=== PATIENT | female | born 1950 | race Caucasian/White ===

== ENCOUNTER → 2018-04-22 12:05 | Outpatient (CLI) | payer MEDICARE, BC, SELFPAY ==
[2018-04-22 13:38] LABS: AST(SGOT) 19 U/L (15-37); Alanine Aminotransfer ALT/SGPT 34 U/L (13-56); Alkaline Phosphatase 78 U/L (45-117); Anion Gap 10 (5-15); BUN 15 mg/dL (7-18); BUN/Creat Ratio 20.3 RATIO (10-20); Calcium,Total 9.4 mg/dL (8.5-10.1); Chloride 102 mmol/L (98-107); Creatinine, Serum 0.74 mg/dL (0.55-1.02); EST Glomerular Filtration Rate 84 mL/min (>60); Est Glom Filt Rate - Afr Amer 101 mL/min (>60); Globulin 4.1 g/dL (2.2-4.2); Glucose 176 mg/dL (74-106); Potassium 4.1 mmol/L (3.5-5.1); Protein, Total 8.1 g/dL (6.4-8.2); Sodium Level 141 mmol/L (136-145)
[2018-04-22 13:39] LABS: Microalbumin,Random Urine 7.1 mg/L (NO RANGE EST.); Microalbumin:Creatinine Ratio 12.6 mg/g CRE (<30 mg/g CRE)
[2018-04-22 13:42] LABS: Hemoglobin A1c 7.4 % (4.2-6.3)
== END ==
PROVIDERS: Referring Provider Nurse Practitioner; Visit Provider Nurse Practitioner
DX: E11.65 Type 2 diabetes mellitus with hyperglycemia (principal)
CPT/HCPCS: 36415; 80053; 82043; 82570; 83036

== ENCOUNTER → 2018-07-23 11:16 | Outpatient (CLI) | payer MEDICARE, BC, SELFPAY ==
[2018-07-23 10:30] VITALS: BMI 30.7
[2018-07-23 13:34] LABS: Vitamin D,25 Hydroxy 45.1 ng/mL (29.95-100.01)
== END ==
PROVIDERS: Referring Provider Nurse Practitioner; Visit Provider Nurse Practitioner
DX: E55.9 Vitamin D deficiency, unspecified (principal)
CPT/HCPCS: 36415; 82306

== ENCOUNTER → 2018-08-01 09:41 | Outpatient (CLI) | payer MEDICARE, BC, SELFPAY ==
[2018-07-23 10:30] VITALS: BMI 30.7
[2018-08-01 11:55] LABS: Free T3 2.6 pg/mL (2.18-3.98); T4 Free Direct 1.05 ng/dL (0.76-1.46); Thyroid Stim Hormone (TSH) 1.71 uIU/mL (0.358-3.74)
== END ==
PROVIDERS: Referring Provider Nurse Practitioner; Visit Provider Nurse Practitioner
DX: E07.9 Disorder of thyroid, unspecified (principal); E11.9 Type 2 diabetes mellitus without complications
CPT/HCPCS: 36415; 84439; 84443; 84481

== ENCOUNTER → 2025-03-19 | Outpatient (CLI) | payer MEDICARE, BC, SELFPAY ==
--- NOTE | 2025-03-19 06:26 | ECHOD_ITS ---
Reason For Study Reason For Study: CAD, Abn EKG Procedure This was a 2D Doppler, Color Flow transthoracic echocardiogram. Exam performed in department. Left Ventricle Normal LV size. The left ventricular ejection fraction is 65 %. Stage 1 diastolic dysfunction. No regional wall motion abnormalities noted. Right Ventricle Normal RV size. Normal systolic function. Atria Normal left atrium. Normal right atrium. Mitral Valve Normal mitral valve. Tricuspid Valve Normal tricuspid valve. Aortic Valve Trisinus/trileaflet aortic valve. Mild focal aortic valve calcification. Pulmonic Valve Normal pulmonic valve. Great Vessels Normal aortic root. The pulmonary artery is normal size. Normal inferior vena cava. Pericardium/Pleural No pericardial effusion. MMode/2D Measurements & Calculations LVIDd: 4.1 cm IVSd: 0.76 cm Ao root diam: 2.9 cm LVIDs: 2.5 cm LVPWd: 0.84 cm RVDd: 2.7 cm FS: 38.0 % LAV(MOD-bp): 35.6 ml LVAd ap4: 20.5 cm2 LVAd ap2: 23.9 cm2 LAV(MOD-bp) Indexed: 20.2 ml/m2 LVLd ap4: 6.4 cm LVLd ap2: 7.2 cm LAV(MOD-sp2): 34.8 ml EDV(MOD-sp4): 54.6 ml EDV(MOD-sp2): 66.7 ml LAV(MOD-sp4): 33.7 ml EDV(sp4-el): 55.6 ml EDV(sp2-el): 67.1 ml LVAs ap4: 11.0 cm2 LVAs ap2: 13.4 cm2 LVLs ap4: 5.9 cm LVLs ap2: 6.4 cm ESV(MOD-sp4): 18.1 ml ESV(MOD-sp2): 23.2 ml ESV(sp4-el): 17.6 ml ESV(sp2-el): 23.8 ml EF(MOD-sp4): 66.8 % EF(MOD-sp2): 65.2 % EF(sp4-el): 68.4 % SV(MOD-sp4): 36.5 ml SV(MOD-sp2): 43.5 ml SV(sp4-el): 38.0 ml SI(MOD-sp4): 20.7 ml/m2 SI(MOD-sp2): 24.6 ml/m2 LA A4 area: 13.4 cm2 RA A4 area: 10.0 cm2 TAPSE: 1.6 cm Time Measurements MV dec time: 0.21 sec Doppler Measurements & Calculations MV E max kunal: 74.6 cm/sec Lat Peak E' Kunal: 6.7 cm/sec Med Peak E' Kunal: 6.5 cm/sec MV A max kunal: 88.6 cm/sec E/E' lat: 11.1 E/E' med: 11.5 MV E/A: 0.84 Ao V2 max: 144.3 cm/sec AI max kunal: 439.8 cm/sec MV dec slope: 352.7 cm/sec2 Ao max P.3 mmHg AI max P.4 mmHg AI dec slope: 283.7 cm/sec2 AI P1/2t: 454.2 msec LV V1 max: 102.5 cm/sec PA V2 max: 91.4 cm/sec TR max kunal: 251.7 cm/sec LV V1 max P.2 mmHg TR max P.4 mmHg ECHO/Echo Complete Interpretation Summary Normal LV size. The left ventricular ejection fraction is 65 %. Stage 1 diastolic dysfunction. The global longitudinal strain is normal. The global longitudinal strain = -18. 8 % (normal). Ordering Physician: Abel Waldrop Referring Physician: Abel Waldrop Performed By: Emma Valdes RDCS
--- OUTSIDE RECORDS SUMMARY | 2025-03-19 06:30 | XMS RPT_ITS | CCD ---
Author Organization [facility] Care Team Providers Care Asset Recovery Specialist Name Role Phone ZACH DO, DR BRADLY Coley Primary Care Physician ZACH DO, DR BRADLY Coley Primary Care Unavailabl e ZACH DO, DR BRADLY Coley Attending Unavailabl e ZACH DO, DR BRADLY Coley Primary Care Unavailabl e ZACH DO, DR BRADLY Coley Attending Unavailabl e ZACH DO, DR BRADLY Coley Primary Care Unavailabl e ZACH DO, DR BRADLY Coley Attending Unavailabl e ZACH DO, DR BRADLY Coley Primary Care Unavailabl e ZACH DO, DR BRADLY Coley Attending Unavailabl e ZACH DO, DR BRADLY Coley Attending Unavailabl e ZACH DO, DR BRADLY Coley Primary Care Unavailabl e ZACH DO, DR BRADLY Coley Attending Unavailabl e ZACH DO, DR BRADLY Coley Primary Care Unavailabl e ZACH DO, DR BRADLY Coley Attending Unavailabl e ZACH DO, DR BRADLY Coley Primary Care Unavailabl e ZACH DO, DR BRADLY Coley Attending Unavailabl e ZACH DO, DR BRADLY Coley Primary Care Unavailabl e ZACH DO, DR BRADLY Coley Primary Care Unavailabl e ZACH DO, DR BRADLY Coley Attending Unavailabl e ZACH DO, DR BRADLY Coley Attending Unavailabl e ZACH DO, DR BRADLY Coley Primary Care Unavailabl e ZACH DO, DR BRADLY Coley Attending Unavailabl e ZACH DO, DR BRADLY Coley Primary Care Unavailabl e ZACH DO, DR BRADLY Coley Primary Care Unavailabl e ZACH DO, DR BRADLY Coley Attending Unavailabl e ZACH DO, DR BRADLY Coley Primary Care Unavailabl e ZACH DO, DR BRADLY Coley Attending Unavailabl e [facility] DO, DR BRADLY Coley Attending Unavailabl e ZACH DO, DR BRADLY Coley Primary Care Unavailabl e ZACH DO, DR BRADLY Coley Primary Care Unavailabl e JOSEPH MURGUIA Attending Unavailable Dr. Abel Waldrop MD Attending Provider [phone] Zach CARPENTER, Dr. Hernández Primary Care Provider [phone] Zach CARPENTER, Dr. Hernández Referring Provider Abel Waldrop Attending Unavailable Bradly Serrano Referring Unavailable Bradly Serrano Primary Care Unavailable Bradly Serrano Primary Care Unavailable Abel Waldrop Referring Unavailable Abel Waldrop Attending Unavailable Medications Current Medications Medication Drug Class(es) Dates Sig (Normalized) Sig (Original) ACCU-CHEK TALYA PLUS TEST STRP (13 sources) Start: 02-17-2019 ACCU-CHEK TALYA PLUS TEST STRP See Instructions, Check BG 2 times daily #50 Refill 12 Diabetes type 2, # 50 EA Start Date: 02/17/19 Status: Ordered Quantity: 50.0 Unit: EA Repeat number: 1 Start: 02-17-2019 ACCU-CHEK JUSTIN A PLUS TEST STRP See Instructions, Check BG 2 times daily #50 Refill 12 Diabetes type 2, # 50 EA Start Date: 02/17/19 Status: Ordered aspirin 81 mg delayed release oral tablet (2 sources) Platelet Aggregation Inhibitor, Nonsteroidal Anti-inflammatory Drug Start: 02-15-2025 take 1 tablet by mouth once daily Aspirin (Adult Aspirin Regimen) 81 mg tablet,delayed release (DR/EC) Active 81 mg PO daily February 15, 2025 12:00am Start: 02-01-2025 aspirin 81 mg oral delayed release tablet Dose : 81 mg = 1 tab(s), Oral, qDay, # 30 tab(s), 0 Refill(s), Pharmacy: [facility]/pharmacy #[id number], 168, cm, 02/01/25 13:08:00 EDT, Height, kg, 02/01/25 13:08:00 EDT, Dosing Weight Start Date: 02/01/25 Status: Ordered Quantity: 30.0 Unit: tab(s) Repeat number: 1 biotin 1 mg oral capsule (1 source) Start: 10-28-2017 take 1 capsule by mouth once daily Biotin 1 mg capsule Active 1 mg PO daily October 28, 2017 12:00am Biotin Forte (13 sources) Start: 02-17-2019 take 1 tablet by iris th once daily Biotin Forte Dose = 1 tab(s), Oral, qDay, 0 Refill(s) Start Date: 02/17/19 Status: Ordered Repeat number: 1 Start: 02-17-2019 take 1 tablet by iris th once daily Biotin Forte Dose = 1 tab(s), Oral, qDay, 0 Refill(s) Start Date: 02/17/19 Status: Ordered Blood-Glucose Meter (Accu-Ch ek Talya Plus Meter) misc (2 sources) Start: 06-17-2018 Blood-Glucose Meter (Accu-Chek Talya Plus Meter) misc Active 0 .ROUTE .MEDSUPPLY 1 0 June 17, 2018 1:48pm Type 2 diabetes mellitus without complications use to moniter Bg as directed Start: 06-17-2018 End: 06-17-2018 Blood-Glucose Meter (Accu-Ch ek Talya Plus Meter) misc Discontinued 0 .ROUTE .MEDSUPPLY 1 0 June 17, 2018 1:00am June 17, 2018 1:48pm Type 2 diabetes mellitus without complications use to moniter Bg as directed calcium (as citrate)-vitamin D 250 mg-200 intl units oral tablet (1 source) Start: 02-17-2019 take 1 tablet by mouth twice daily calcium (as citrate)-vitamin D 250 mg-200 intl units oral tablet Dose = 1 tab(s), Oral, BID, # 150 tab(s), 0 Refill(s) Start Date: 02/17/19 Status: Ordered Calcium Carb, Citrate-Vit D3 (Citracal-D3 Slow Release) 600 mg calcium- 500 unit tablet extended release (3 sources) Start: 04-30-2018 Calcium Carb, Citrate-Vit D3 (Citracal-D3 Slow Release) 600 mg calcium- 500 unit tablet extended release Active 1 {tbl} PO daily 90 April 30, 2018 5:11pm Start: 04-30-2018 End: 04-30-2018 Calcium Carb, Citrate-Vit D3 (Citracal-D3 Slow Release) 600 mg calcium- 500 unit tablet extended release Discontinued 1 {tbl} PO daily 90 April 30, 2018 9:47am April 30, 2018 5:13pm Start: 10-28-2017 End: 04-30-2018 Calcium Carb, Citrate-Vit D3 (Citracal-D3 Slow Release) 600 mg calcium- 500 unit tablet extended release Discontinued {tbl} PO 0 October 28, 2017 12:00am April 30, 2018 9:51am calcium citrate 1190 mg / cholecalciferol 0.005 mg oral tablet (12 sources) Vitamin D Start: 02-17-2019 take 1 tablet by mouth twice daily calcium (as citrate)-vitamin D 250 mg-200 intl units oral tablet Dose = 1 tab(s), Oral, BID, # 150 tab(s), 0 Refill(s) Start Date: 02/17/19 Status: Ordered Quantity: 150.0 Unit: tab(s) Repeat number: 1 Centrum (13 sources) Start: 02-17-2019 take 1 tablet by mouth once daily Centrum 1 tab, Oral, qDay, 0 Refill(s) Start Date: 02/17/19 Status: Ordered Repeat number: 1 Start: 02-17-2019 take 1 tablet by iris th once daily Centrum 1 tab, Oral, qDay, 0 Refill(s) Start Date: 02/17/19 Status: Ordered dapagliflozin 10 mg oral tablet (13 sources) Sodium-Glucose Cotransporter 2 Inhibitor Start: 02-15-2025 take 1 tablet by mouth once daily Dapagliflozin Propanediol (Farxiga) 10 mg tablet Active 10 mg PO daily February 15, 2025 12:00am Start: 12-26-2021 Farxiga 10 mg oral tablet Dose : 10 mg = 1 tab(s), Oral, qDay, # 30 tab(s), 11 Refill(s), Pharmacy: [facility]/pharmacy #[id number], 168.5, cm, 12/01/21 9:12:00 EDT, Height Start Date: 12/26/21 Status: Ordered Quantity: 30.0 Unit: tab(s) Repeat number: 12 empagliflozin 25 mg / linagliptin 5 mg oral tablet (4 sources) Dipeptidyl Peptidase 4 Inhibitor, Sodium-Glucose Cotransporter 2 Inhibitor Start: 10-28-2017 End: 02-15-2025 take 1 tablet by mouth once daily in the morning, then take 1 tablet by mouth in the morning Glyxambi 25 mg-5 mg oral tablet Dose = 1 tab(s), Oral, qAM, TAKE 1 TABLET IN THE MORNING, # 90 tab(s), 3 Refill(s), Pharmacy: [facility]/pharmacy #[id number], 166.2, cm, 03/01/21 13:15:00 EDT, Height, kg, 03/01/21 13:15:00 EDT, Dosing Weight Start Date: 05/22/21 Status: Ordered glimepiride 4 mg oral tablet (12 sources) Sulfonylurea Start: 05-07-2024 glimepiride 4 mg oral tablet Dose : 4 mg = 1 tab(s), Oral, BID, TAKE 1 TABLET BY MOUTH TWICE A DAY, # 180 tab(s), 3 Refill(s), Pharmacy: [facility]/pharmacy #[id number], 168, cm, 03/20/24 8:20:00 EDT, Height, kg, 04/20/24 14:31:00 EDT, Dosing Weight Start Date: 05/07/24 Status: Ordered Start: 03-18-2023 glimepiride 4 mg oral tablet Dose : 4 mg = 1 tab(s), Oral, BID, TAKE 1 TABLET BY MOUTH TWICE A DAY, # 180 tab(s), 3 Refill(s), Pharmacy: [facility]/pharmacy #[id number], 168, cm, 03/18/23 9:33:00 EDT, Height, kg, 03/18/23 9:33:00 EDT, Dosing Weight Start Date: 03/18/23 Status: Ordered Start: 10-28-2017 End: 02-15-2025 glimepiride 4 mg oral tablet Dose : 4 mg = 1 tab(s), Oral, BID, TAKE 1 TABLET BY MOUTH TWICE A DAY, # 180 tab(s), 3 Refill(s), Pharmacy: [facility]/pharmacy #[id number], 165.5, cm, 03/15/22 9:33:00 EDT, Height, kg, 03/15/22 9:33:00 EDT, Dosing Weight Start Date: 06/05/22 Status: Ordered glipiZIDE 10 mg oral tablet (5 sources) Sulfonylurea Start: 02-15-2025 take 1 tablet by mouth once daily Glipizide 10 mg tablet Active 10 mg PO daily February 15, 2025 12:00am Start: 08-06-2024 glipiZIDE 10 m g oral tablet, extended release Dose : 10 mg = 1 tab(s), Oral, qDay, Take with food Replaces glimepiride, # 90 tab(s), 3 Refill(s), [id number] 168, cm, 03/20/24 8:20:00 EDT, Height, kg, 06/25/24 15:35:00 EST, Dosing Weight Start Date: 08/06/24 Status: Ordered Quantity: 90.0 Unit: tab(s) Repeat number: 4 Start: 06-25-2024 glipiZIDE 10 m g oral tablet, extended release Dose : 10 mg = 1 tab(s), Oral, qDay, Take with food Replaces glimepiride, # 90 tab(s), 0 Refill(s), [id number], 168, cm, 03/20/24 8:20:00 EDT, Height, kg, 06/25/24 15:35:00 EST, Dosing Weight Start Date: 06/25/24 Status: Ordered hydroCHLOROthiazide 25 mg oral tablet (14 sources) Thiazide Diuretic Start: 02-15-2025 take 1 tablet by mouth once daily Hydrochlorothiazide 25 mg tablet Active 25 mg PO daily February 15, 2025 12:00am Start: 05-07-2024 hydroCHLOROthi azide 25 mg oral tablet Dose : 25 mg = 1 tab(s), Oral, qDay, # 100 tab(s), 3 Refill(s), [id number], Benign hypertension, 168, cm, 03/20/24 8:20:00 EDT, Height, kg, 04/20/24 14:31:00 EDT, Dosing Weight Start Date: 05/07/24 Status: Ordered Quantity: 100.0 Unit: tab(s) Repeat number: 4 Indications: Essential (primary) hypertension; Start: 03-18-2023 hydroCHLOROthi azide 25 mg oral tablet Dose : 25 mg = 1 tab(s), Oral, qDay, # 90 tab(s), 3 Refill(s), [id number], Benign hypertension, 168, cm, 03/18/23 9:33:00 EDT, Height, kg, 03/18/23 9:33:00 EDT, Dosing Weight Start Date: 03/18/23 Status: Ordered Start: 05-16-2022 hydroCHLOROthi azide 25 mg oral tablet Dose : 25 mg = 1 tab(s), Oral, qDay, # 90 tab(s), 3 Refill(s), [id number], Benign hypertension, 165.5, cm, 03/15/22 9:33:00 EDT, Height, kg, 03/15/22 9:33:00 EDT, Dosing Weight Start Date: 05/16/22 Status: Ordered Start: 09-14-2021 hydroCHLOROthi azide 25 mg oral tablet Dose : 25 mg = 1 tab(s), Oral, qDay, # 90 tab(s), 2 Refill(s), Pharmacy: [facility]/pharmacy #[id number], Benign hypertension, 168, cm, 09/14/21 10:51:00 EST, Height, kg, 09/14/21 10:51:00 EST, Dosing Weight Start Date: 09/14/21 Status: Ordered Start: 08-24-2020 hydroCHLOROthi azide 25 mg oral tablet Dose : 25 mg = 1 tab(s), Oral, qDay, start after finished with combination medication, # 90 tab(s), 3 Refill(s), [id number], Benign hypertension, 171.2, cm, 08/24/20 8:48:00 EST, Height, kg, 08/24/20 8:48:00 EST, Dosing Weight Start Date: 08/24/20 Status: Ordered losartan potassium 50 mg oral tablet (14 sources) Angiotensin 2 Receptor Marilee Start: 02-15-2025 take 1 tablet by mouth once daily Losartan 50 mg tablet Active 50 mg PO daily February 15, 2025 12:00am Start: 05-07-2024 losartan 50 mg oral tablet Dose : 50 mg = 1 tab(s), Oral, qDay, # 100 tab(s), 3 Refill(s), [id number], 168, cm, 03/20/24 8:20:00 EDT, Height, kg, 04/20/24 14:31:00 EDT, Dosing Weight Start Date: 05/07/24 Status: Ordered Quantity: 100.0 Unit: tab(s) Repeat number: 4 Start: 03-18-2023 losartan 50 mg oral tablet Dose : 50 mg = 1 tab(s), Oral, qDay, replaces valsartan due to cost, # 90 tab(s), 3 Refill(s), Pharmacy: [facility]/pharmacy #[id number], 168, cm, 03/18/23 9:33:00 EDT, Height, kg, 03/18/23 9:33:00 EDT, Dosing Weight Start Date: 03/18/23 Status: Ordered Start: 05-16-2022 losartan 50 mg oral tablet Dose : 50 mg = 1 tab(s), Oral, qDay, replaces valsartan due to cost, # 90 tab(s), 3 Refill(s), Pharmacy: [facility]/pharmacy #[id number], 165.5, cm, 03/15/22 9:33:00 EDT, Height, kg, 03/15/22 9:33:00 EDT, Dosing Weight Start Date: 05/16/22 Status: Ordered Start: 05-15-2021 losartan 50 mg oral tablet Dose : 50 mg = 1 tab(s), Oral, qDay, replaces valsartan due to cost, # 90 tab(s), 3 Refill(s), [id number], 166.2, cm, 03/01/21 13:15:00 EDT, Height, kg, 03/01/21 13:15:00 EDT, Dosing Weight Start Date: 05/15/21 Status: Ordered metFORMIN hydrochloride 1000 mg oral tablet (17 sources) Biguanide Start: 02-15-2025 Metformin 1,00 0 mg tablet Active 500 mg PO TWICE A DAY February 15, 2025 9:04am Start: 09-28-2024 MetFORMIN (Eqv -Glucophage XR) 500 mg oral tablet, EXTENDED RELEASE Dose : 500 mg = 1 tab(s), Oral, BID, DISPENSE GENERIC METFORMIN ER NON-OSMOTIC, # 180 tab(s), 1 Refill(s), [id number], 168, cm, 03/20/24 8:20:00 EDT, Height, kg, 09/28/24 12:16:00 EDT, Dosing Weight Start Date: 09/28/24 Status: Ordered Quantity: 180.0 Unit: tab(s) Repeat number: 2 Start: 04-20-2024 MetFORMIN (Eqv -Glucophage XR) 500 mg oral tablet, EXTENDED RELEASE Dose : 500 mg = 1 tab(s), Oral, qDay, DISPENSE GENERIC METFORMIN ER NON-OSMOTIC, # 90 tab(s), 1 Refill(s), Pharmacy: [facility]/pharmacy #[id number], 168, cm, 03/20/24 8:20:00 EDT, Height, kg, 04/20/24 14:31:00 EDT, Dosing Weight Start Date: 04/20/24 Status: Ordered Quantity: 90.0 Unit: tab(s) Repeat number: 2 Start: 03-18-2023 metFORMIN 1000 mg oral tablet (IR) Dose : 1,000 mg = 1 tab(s), Oral, BID, TAKE 1 TABLET BY MOUTH TWICE A DAY, # 180 tab(s), 3 Refill(s), Pharmacy: [facility]/pharmacy #[id number], 168, cm, 03/18/23 9:33:00 EDT, Height, kg, 03/18/23 9:33:00 EDT, Dosing Weight Start Date: 03/18/23 Status: Ordered Start: 06-05-2022 metFORMIN 1000 mg oral tablet (IR) Dose : 1,000 mg = 1 tab(s), Oral, BID, TAKE 1 TABLET BY MOUTH TWICE A DAY, # 180 tab(s), 3 Refill(s), Pharmacy: [facility]/pharmacy #[id number], 165.5, cm, 03/15/22 9:33:00 EDT, Height, kg, 03/15/22 9:33:00 EDT, Dosing Weight Start Date: 06/05/22 Status: Ordered Start: 10-28-2017 End: 02-15-2025 metFORMIN 1000 mg oral table t (IR) Dose : 1,000 mg = 1 tab(s), Oral, BID, TAKE 1 TABLET BY MOUTH TWICE A DAY, # 180 tab(s), 3 Refill(s), Pharmacy: [facility]/pharmacy #[id number], 166.2, cm, 03/01/21 13:15:00 EDT, Height, kg, 03/01/21 13:15:00 EDT, Dosing Weight Start Date: 05/15/21 Status: Ordered Zompradvohzc-Lnih-Esiei Acid (Centrum Complete) 18-400 mg-mcg tablet (1 source) Start: 10-28-2017 Ueveatzaiikz-Aluv-Ggqxr Acid (Centrum Complete) 18-400 mg-mcg tablet Active 1 {tbl} PO daily October 28, 2017 12:00am nitroglycerin 0.3 mg sublingual tablet (2 sources) Nitrate Vasodilator Start: 02-15-2025 Nitroglycerin 0.3 mg tablet, sublingual Active 0.3 mg SL every 5 to 15 minutes as needed February 15, 2025 12:00am do not exceed 3 doses per episode Start: 02-01-2025 nitroglycerin 0.3 mg sublingual tablet Dose : 0.3 mg = 1 tab(s), Sublingual, q5min, PRN as needed for chest pain, not to exceed 3 doses/15 min--if pain persists, seek medical attention, # 100 tab(s), 0 Refill(s), Pharmacy: [facility]/pharmacy #[id number], 168, cm, 02/01/25 13:08:00 EDT, Height, kg, 02/01/25 13:08:00 EDT, Dosing Weight Start Date: 02/01/25 Status: Ordered Quantity: 100.0 Unit: tab(s) Repeat number: 1 pioglitazone 45 mg oral tablet (16 sources) Peroxisome Proliferator Receptor alpha Agonist, Peroxisome Proliferator Receptor gamma Agonist, Thiazolidinedione Start: 05-07-2024 pioglitazone 45 mg oral tablet Dose : 45 mg = 1 tab(s), Oral, qDay, # 100 tab(s), 3 Refill(s), Pharmacy: [facility]/pharmacy #[id number], 168, cm, 03/20/24 8:20:00 EDT, Height, kg, 04/20/24 14:31:00 EDT, Dosing Weight Start Date: 05/07/24 Status: Ordered Quantity: 100.0 Unit: tab(s) Repeat number: 4 Start: 03-18-2023 pioglitazone 4 5 mg oral tablet Dose : 45 mg = 1 tab(s), Oral, qDay, TAKE 1 TABLET BY MOUTH EVERY DAY, # 90 tab(s), 3 Refill(s), Pharmacy: [facility]/pharmacy #[id number], 168, cm, 03/18/23 9:33:00 EDT, Height, kg, 03/18/23 9:33:00 EDT, Dosing Weight Start Date: 03/18/23 Status: Ordered Start: 10-28-2017 End: 04-30-2018 take 1 tablet by mouth once daily Pioglitazone (Actos) 45 mg tablet Discontinued 45 mg PO daily 90 April 30, 2018 9:50am April 30, 2018 5:13pm semaglutide 14 mg oral tablet (12 sources) Start: 03-06-2022 Rybelsus 14 mg oral tablet Dose : 14 mg = 1 tab(s), Oral, qDay, take at least 30 minutes before first food, beverage, or other oral meds, # 30 tab(s), 11 Refill(s), Pharmacy: [facility]/pharmacy #[id number], 168.5, cm, 12/01/21 9:12:00 EDT, Height Start Date: 03/06/22 Status: Ordered Quantity: 30.0 Unit: tab(s) Repeat number: 12 Semaglutide (Rybelsus) 14 mg tablet (1 source) Start: 02-15-2025 take 1 tablet by mouth once daily Semaglutide (Rybelsus) 14 mg tablet Active 14 mg PO daily February 15, 2025 12:00am simvastatin 40 mg oral tablet (16 sources) HMG-CoA Reductase Inhibitor Start: 05-07-2024 simvastatin 40 mg oral tablet Dose : 40 mg = 1 tab(s), Oral, qHS, e11.9, # 100 tab(s), 3 Refill(s), Pharmacy: [facility]/pharmacy #[id number], 168, cm, 03/20/24 8:20:00 EDT, Height, kg, 04/20/24 14:31:00 EDT, Dosing Weight Start Date: 05/07/24 Status: Ordered Quantity: 100.0 Unit: tab(s) Repeat number: 4 Start: 03-18-2023 simvastatin 40 mg oral tablet Dose : 40 mg = 1 tab(s), Oral, qHS, e11.9, # 90 tab(s), 3 Refill(s), Pharmacy: [facility]/pharmacy #[id number], 168, cm, 03/18/23 9:33:00 EDT, Height, kg, 03/18/23 9:33:00 EDT, Dosing Weight Start Date: 03/18/23 Status: Ordered Start: 10-28-2017 End: 04-22-2018 take 1 tablet by mouth once daily in the evening Simvastatin 40 mg tablet Discontinued 40 mg PO EVERY EVENING 30 April 22, 2018 10:41am April 22, 2018 11:47am Completed/Discontinued Medications Medication Drug Class(es) Dates Sig (Normalized) Sig (Original) Blood-Glucose Meter misc (1 source) Start: 04-22-2018 End: 08-06-2018 Blood-Glucose Meter misc Discontinued 0 .ROUTE .MEDSUPPLY 1 0 April 22, 2018 12:00am August 06, 2018 2:30pm Type 2 diabetes mellitus without complications As directed cholecalciferol 1.25 mg oral capsule (3 sources) Vitamin D Start: 10-28-2017 End: 02-19-2025 take 1 capsule by mouth every other week Cholecalciferol (Vitamin D3) 50,000 unit capsule Discontinued 18292 U PO .q2wks 10 May 27, 2018 11:08am February 19, 2025 1:16pm Disorder of bone density and structure, unspecified Start: 10-28-2017 End: 02-19-2025 Cholecalciferol (Vitamin D3) 2,000 unit capsule Discontinued 3500 U PO daily October 28, 2017 12:00am February 19, 2025 1:16pm colesevelam hydrochloride 3750 mg powder for oral suspension (1 source) Bile Acid Sequestrant Start: 10-28-2017 End: 02-15-2025 take 3750 mg by mouth once daily Colesevelam (Welchol) 3.75 gram powder in packet Discontinued 3750 mg PO daily October 28, 2017 12:00am February 15, 2025 9:05am hydroCHLOROthiazide 25 mg / losartan potassium 100 mg oral tablet (3 sources) Thiazide Diuretic, Angiotensin 2 Receptor Marilee Start: 10-28-2017 End: 02-15-2025 Losartan-Hydrochl orothiazide 100-25 mg tablet Discontinued 1 {tbl} PO daily 90 3 April 30, 2018 5:11pm February 15, 2025 9:03am Problems Problem Classification Problem Date Documented Da te Episodic/Chronic Administrative/social admission (3 sources) Dietary counseling and surveillance; Translations: [Dietary counseling and surveillance] Onset: 12-17-2023 Episodic Diabetes mellitus with complications (3 sources) Renal disorder due to type 2 diabetes mellitus; Translations: [Type 2 diabetes mellitus with other diabetic kidney complication] Onset: 03-22-2023 Chronic Diabetes mellitus without complication (20 sources) Diabetes mellitus; Translations: [Type 2 diabetes mellitus without complications] Onset: 03-11-2024 09-23-2019 Chronic Comment on above: Review of patient re cords indicates she was on onvokana but was switched to another medication in the same class. However she has not achieved the same level of control which is probably why she was asked to start insulin. Dx :2008Last exacerb ation : DKA : never Hypoglycemic episode : never ER visit : never Disorders of lipid metabolism (17 sources) Mixed hyperlipidemia; Translations: [Mixed hyperlipidemia] Onset: 02-19-2025 02-12-2019 Chronic Comment on above: On stain. Was also p rescribed whelchol by the endocrinoligst but is not taking. She continues on simvastatin. Essential hypertension (16 sources) Benign hypertension; Translations: [Essential hypertension] Onset: 02-19-2025 02-12-2019 Chronic Comment on above: On ARB Bp in range. today. 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 Pt is to continue Calcium and vitamin D supplements. Other ear and sense organ disorders (8 sources) Impacted cerumen 05-23-2023 Episodic Results Test Name Value Interpretation Reference Range Facility Cardiology Visit Reporton Cardiology Visit Report [facility] [address] [place], [place] [address] OFFICE VISIT Date of Service: 02/19/25 MR#: [id number] Acct: [id number] Name: OZZY ALCOCER Rep #: [id number] : 1950 Provider: Dr. Abel Waldrop MD Age/Sex: 74/F Location[place] [facility] [place] Status: Signed HPI HPI History of Present Illness Details: 74-year-old lady who presents for cardiac evaluation. She had presented to the hospital in [place] in early January with chest discomfort. She said it was on the left side it started approximately a month prior to this. She does not know of any precipitating, exacerbating or relieving factors. She does have a strong family history of heart disease and has a history of hypertension as well as a diabetes mellitus. She was evaluated and started on aspirin and then referred to see cardiology. She says that she has not had any more of the chest discomfort since. She has been compliant with her medications especially her diabetic medications. She has had no dizziness or diaphoresis no near-syncope or syncope. Her physical exam demonstrates clear lung york regular rate and rhythm soft 1/6 systolic murmur noted at the apex and the left sternal border. Her electrocardiogram demonstrates sinus rhythm with a rate of 77 bpm poor R wave progression suggestive of a previous anteroseptal infarct. Her lipid profile demonstrates a total cholesterol 153 HDL of 46 LDL of 65. Intake Vital Signs 02/19/25 13:01 Height 5 ft 6 in Weight: 149 lb BMI 24.0 BP 145/76 H Blood Pressure Location Lt brachial Position Sitting Respiration 16 Pulse 75 Pulse Source Monitor Intake Visit Reasons: STEVE CORONA) Manager Department Required: No Accompanied by: Significant Other Is patient in pain?: No Allergies No Known Allergies Allergy (Unverified 02/19/25 13:14) Medications ???Medication ???Instructions ???Recorded ???Confirmed ???Type biotin 1 mg capsule 1 mg PO QDAY 10/28/17 02/19/25 His tory multivitamin-ferrous 1 tab PO QDAY 10/28/17 02/19/25 Hi story fumarate-folic acid 18 mg-400 mcg tablet (Centrum Complete) simvastatin 40 mg tablet 40 mg PO QPM #30 tabs 04/22/1808/15 Rx calcium ER 600 mg (as carb,cit)-D3 1 tab PO QDAY #90 tabs 04/30/18 02/19/25 Rx 12.5 mcg (500 unit) tablet, ext.rel (Citracal-D3 Slow Release) pioglitazone 45 mg tablet (Actos) 45 mg PO QDAY #90 tabs 04/30/18 0 02/19/25 Rx blood-glucose meter (Accu-Chek #1 ea 06/17/18 10/08/18 Rx Talya Plus Meter) blood sugar diagnostic (Accu-Chek #60 ea 08/06/18 10/08/18 Rx Talya Plus test strips) aspirin 81 mg tablet,delayed 81 mg PO QDAY 02/15/25 02/19/25 Hi story release (Adult Aspirin Regimen) dapagliflozin propanediol 10 mg 10 mg PO QDAY 02/15/25 02/19/25 Hi story tablet (Farxiga) glipizide 10 mg tablet 10 mg PO QDAY 02/15/25 02/19/25 Hi story hydrochlorothiazide 25 mg tablet 25 mg PO QDAY 02/15/25 02/19/25 Hi story losartan 50 mg tablet 50 mg PO QDAY 02/15/25 02/19/25 Hi story metformin 1,000 mg tablet 500 mg PO BID 02/15/25 02/19/25 Hi story nitroglycerin 0.3 mg sublingual 0.3 mg sublingual Q5-15M PRN 02/1502/19/25 History tablet semaglutide 14 mg tablet (Rybelsus) 14 mg PO QDAY 02/15/25 02/19/25 History Have you fallen in the past year?: Yes PFSH Medical History Cardiac murmur Chest pain Hyperlipidemia, unspecified Vision problems High cholesterol HTN (hypertension) Low calcium levels Gallstones Diabetes type 2, controlled Arthritis Surgical History H/O dilation and curettage Hx of cholecystectomy H/O: hysterectomy Family History Unknown Arthritis Diabetes Heart disease Hypertension High cholesterol Kidney disease Skin cancer Other Parkinsons disease Social History Smoking Status: Never smoker second hand exposure: No alcohol intake: never substance use type: does not use ROS Const Const: Negative for fatigue, weakness, headache(s), daytime sleepiness or difficulty sleeping ENT ENT: Negative for headache(s), dizziness or Nosebleed/epistaxis Cardio Chest Pain: No Palpitations: No Edema: None Resp Respiratory: Negative for SOB with activity, SOB at rest, SOB orthopnea SOB lying down or Cough GI GI: Negative nausea, vomiting or heartburn Neuro Neuro: Negative for dizziness, lightheadedness, near syncope, headache(s) or weakness Endo Endo: Negative for fatigue Cardiology Exam Const Appearance: cooperative, healthy appearing, no acute distress, well developed and well groomed Nutritional Appearance: average body (more content not included)... Normal [facility] .Auto Diffon 02-01-2025 Basophil, Absolute 0.0 10 3/mcL Normal 0.0-0.3 [facility] Comment on above: Performed By: #### G FR, ANEU, CMP, CBC, PBNP, ROIXE GALDAMEZ, TROPHS #### [address] [address] Basophils/100 WBC (Bld) 0.5 % Normal 0.0-2.5 [facility] Comment on above: Performed By: #### G FR, ANEU, CMP, CBC, PBNP, ROXIE GALDAMEZ, DAVIDA #### [address] [address] Eosinophil, Absolute 0.1 10 3/mcL Normal 0.0-0.7 [facility] Comment on above: Performed By: #### G FR, ANEU, CMP, CBC, PBNP, ROXIE GALDAMEZ, DAVIDA #### [address] [address] Eosinophils/100 WBC (Bld) 1.2 % Normal 0.0-6.0 [facility] Comment on above: Performed By: #### G FR, ANEU, CMP, CBC, PBNP, ADROXIE VALLEJO, TROPHS #### [address] [address] Lymphocyte, Absolute 1.7 10 3/mcL Normal 0.9-4.3 [facility] Comment on above: Performed By: #### G FR, ANEU, CMP, CBC, PBNP, RUDOLPH, ROXIE, TROPHS #### [address] [address] Lymphocytes/100 WBC (Bld) 17.0 % Low 20.0-40.0 [facility] Comment on above: Performed By: #### G FR, ANEU, CMP, CBC, PBNP, RUDOLPH, ROXIE, TROPHS #### [address] [address] Monocyte, Absolute 0.8 10 3/mcL Normal 0.1-1.4 [facility] Comment on above: Performed By: #### G FR, ANEU, CMP, CBC, PBNP, RUDOLPH, ROXIE, TROPHS #### [address] [address] Monocytes/100 WBC (Bld) 7.8 % Normal 2.0-13.0 [facility] Comment on above: Performed By: #### G FR, ANEU, CMP, CBC, PBNP, ROXIE GALDAMEZ, TROPHS #### [address] [address] Neutrophils/100 WBC (Bld) 73.5 % Normal 50.0-75.0 [facility] Comment on above: Performed By: #### G FR, ANEU, CMP, CBC, PBNP, RUDOLPH, ROXIE, TROPHS #### [address] [address] .GFRon 02-01-2025 Estimated Glomerular Filtration Rate 97 ml/min/1.73sqm Normal [facility] Comment on above: Result Comment: Stages of Chronic Kidney Disease (CKD) Stage Description eGFR(ml/min/1.73 sq.m.) CKD 1 Normal kidney function or >=90 normal kindney function with possible kidney damage (ex. Proteinuria) CKD 2 Kidney damage with mild loss 60-89 of kidney function CKD 3a Mild to moderate loss of kidney 45-59 function CKD 3b Moderate to severe loss of 30-44 of kindey function CKD 4 Severe loss of kidney function 15-29 CKD 5 Kidney failure <15 Note: (go live 2024) the eGFR calculation was updated to the 2020 CKD-EPI creatinine equation without a race factor to calculate the eGFR results. Performed By: #### G FR, ANEU, CMP, CBC, PBNP, ADIFF, MDW, TROPHS #### [place] [id number] .MDWon 02-01-2025 Monocyte Distribution Width 18.87 Normal 0.00-20.00 [facility] Comment on above: Result Comment: For ED adult patients suspected of sepsis, MDW<=20.0 does not rule out sepsis or risk of sepsis Performed By: #### G FR, ANEU, CMP, CBC, PBNP, ADIFF, MDW, TROPHS #### [place] [address] .NEUABSon 02-01-2025 Neutrophil, Absolute 7.5 10 3/mcL Normal 2.3-8.1 [facility] Comment on above: Performed By: #### G FR, ANEU, CMP, CBC, PBNP, ADIFF, MDW, TROPHS #### [place] [address] CBCon 02-01-2025 Erythrocyte distribution width (RBC) [Ratio] 14.1 % Normal 11.5-15.5 [facility] Comment on above: Performed By: #### G FR, ANEU, CMP, CBC, PBNP, ADIFF, MDW, TROPHS #### [place] [address] Hematocrit (Bld) [Volume fraction] 44.2 % Normal 34.0-46.0 [facility] Comment on above: Performed By: #### G FR, ANEU, CMP, CBC, PBNP, ADIFF, MDW, TROPHS #### [place] [address] Hgb 15.1 G/dL Normal 12.0-16.0 [facility] Comment on above: Performed By: #### G FR, ANEU, CMP, CBC, PBNP, ADIFF, MDW, TROPHS #### [place] [address] MCH (RBC) [Entitic mass] 31.1 pg Normal 27.0-33.0 [facility] Comment on above: Performed By: #### G FR, ANEU, CMP, CBC, PBNP, ADIFF, MDW, TROPHS #### [place] [address] MCHC 34.1 G/dL Normal 32.0-36.0 [facility] Comment on above: Performed By: #### G FR, ANEU, CMP, CBC, PBNP, ADIFF, MDW, TROPHS #### [place] [address] MCV (RBC) [Entitic vol] 91.2 fL Normal 80.0-99.0 [facility] Comment on above: Performed By: #### G FR, ANEU, CMP, CBC, PBNP, ADIFF, MDW, TROPHS #### [place] [address] Platelet 239 10 3/mcL Normal 150-450 [facility] Comment on above: Performed By: #### G FR, ANEU, CMP, CBC, PBNP, ADIFF, MDW, TROPHS #### [place] [address] Platelet mean volume (Bld) [Entitic vol] 9.7 fL Normal 6.6-10.5 [facility] Comment on above: Performed By: #### G FR, ANEU, CMP, CBC, PBNP, ADIFF, MDW, TROPHS #### [place] [address] RBC 4.85 10 6/mcL Normal 4.10-5.30 [facility] Comment on above: Performed By: #### G FR, ANEU, CMP, CBC, PBNP, ADIFF, MDW, TROPHS #### [place] [phone] WBC 10.2 10 3/mcL Normal 4.5-10.8 [facility] Comment on above: Performed By: #### G FR, ANEU, CMP, CBC, PBNP, ADIFF, MDW, TROPHS #### [address] [address] CMPon 02-01-2025 Albumin Level 4.2 G/dL Normal 3.2-4.8 [facility] Comment on above: Performed By: #### G FR, ANEU, CMP, CBC, PBNP, ADIFF, MDW, TROPHS #### [place] [address] Albumin/Globulin [Mass ratio] 1.2 {ratio} Normal 0.9-1.6 [facility] Comment on above: Performed By: #### G FR, ANEU, CMP, CBC, PBNP, ADIFF, MDW, TROPHS #### [address] [address] ALP [Catalytic activity/Vol] 83 U/L Normal 38-126 [facility] Comment on above: Performed By: #### G FR, ANEU, CMP, CBC, PBNP, ADIFF, MDW, TROPHS #### [address] [address] ALT [Catalytic activity/Vol] 11 U/L Normal 10-49 [facility] Comment on above: Performed By: #### G FR, ANEU, CMP, CBC, PBNP, ADIFF, MDW, TROPHS #### [address] [address] AST [Catalytic activity/Vol] 16 U/L Normal 8-34 [facility] Comment on above: Performed By: #### G FR, ANEU, CMP, CBC, PBNP, ADIFF, MDW, TROPHS #### [address] [address] Bili Total 0.50 mg/dL Normal 0.20-1.20 [facility] Comment on above: Result Comment: Use of this assay is not recommended for patients undergoing treatment with eltrombopag due to the potential for falsely elevated results. Performed By: #### G FR, ANEU, CMP, CBC, PBNP, ADIFF, MDW, TROPHS #### [address] [address] BUN/Creatinine Ratio 25.0 ratio High 10.0-22.0 [facility] Comment on above: Performed By: #### G FR, ANEU, CMP, CBC, PBNP, ADGENEVIEVE, ROXIE, TROPHS #### [address] [address] Calcium [Mass/Vol] 9.8 mg/dL Normal 8.7-10.4 [facility] Comment on above: Performed By: #### G FR, ANEU, CMP, CBC, PBNP, RUDOLPH, ROXIE, TROPHS #### [address] [address] Chloride [Moles/Vol] 102 mmol/L Normal 98-110 [facility] Comment on above: Performed By: #### G FR, ANEU, CMP, CBC, PBNP, ADGENEVIEVE, ROXIE, TROPHS #### [address] [address] CO2 [Moles/Vol] 27 mmol/L Normal 22-32 [facility] Comment on above: Performed By: #### G FR, ANEU, CMP, CBC, PBNP, RUDOLPH, ROXIE, TROPHS #### [address] [address] Creatinine [Mass/Vol] 0.56 mg/dL Normal 0.50-1.20 [facility] Comment on above: Result Comment: Test ing performed on Firetide analyzer using enzymatic creatinine methodology. Performed By: #### G FR, ANEU, CMP, CBC, PBNP, ADGENEVIEVE, ROXIE, TROPHS #### [address] [address] Electrolyte Balance 13.0 mEq/L Normal 4.0-15.0 [facility] Comment on above: Performed By: #### G FR, ANEU, CMP, CBC, PBNP, ADGENEVIEVE, ROXIE, TROPHS #### [address] [address] Globulin 3.6 G/dL Normal 2.5-4.2 [facility] Comment on above: Performed By: #### G FR, ANEU, CMP, CBC, PBNP, RUDOLPH, ROXIE, TROPHS #### [address] [address] Glucose [Mass/Vol] 147 mg/dL High 82-115 [facility] Comment on above: Performed By: #### G FR, ANEU, CMP, CBC, PBNP, RUDOLPH, ROXIE, TROPHS #### [address] [address] Potassium [Moles/Vol] 3.7 mmol/L Normal 3.5-5.0 [facility] Comment on above: Performed By: #### G FR, ANEU, CMP, CBC, PBNP, RUDOLPH, ROXIE, TROPHS #### [address] [address] Sodium [Moles/Vol] 142 mmol/L Normal 136-145 [facility] Comment on above: Performed By: #### G FR, ANEU, CMP, CBC, PBNP, RUDOLPH, ROXIE, TROPHKimberlee #### [place] [phone] Total Protein 7.8 G/dL Normal 5.7-8.2 [facility] Comment on above: Performed By: #### G FR, ANEU, CMP, CBC, PBNP, RUDOLPH, ROXIE, TROPHS #### [place] [phone] Urea nitrogen [Mass/Vol] 14.0 mg/dL Normal 8.0-22.0 [facility] Comment on above: Performed By: #### G FR, ANEU, CMP, CBC, PBNP, RUDOLPH, ROXIE, TROPHS #### [address] [address] LABORATORYOrdered By: SYSTEM SYSTEM on 02-01-2025 Troponin I.cardiac DL <= 0.01 ng/mL [Mass/Vol] 3 ng/L Normal 0 - 34 ng/L [facility] Comment on above: Interpretive Data: High Sensitive Troponin I Reference Ranges: Female: 0-34 ng/L Male: 0-54 ng/L Testing performed on dotSyntax analyzer using direct chemiluminescent technology. Albumin BCP dye [Mass/Vol] 4.2 G/dL Normal 3.2 - 4.8 G/dL ADM SS Albumin/Globulin [Mass ratio] 1.2 {ratio} Normal 0.9 - 1.6 ratio AH ADM SS ALP [Catalytic activity/Vol] 83 U/L Normal 38 - 126 U/L ADM SS ALT No additional P-5'-P [Catalytic activity/Vol] 11 U/L Normal 10 - 49 U/L AH ADM SS AST [Catalytic activity/Vol] 16 U/L Normal 8 - 34 U/L ADM SS Basophils (Bld) [#/Vol] 0.0 103/mcL Normal 0.0 - 0.3 10^3/mcL Workflow SS Basophils/100 WBC (Bld) 0.5 % Normal 0.0 - 2.5 % Workflow SS Bilirubin [Mass/Vol] 0.50 mg/dL Normal 0.20 - 1.20 mg/dL ADM SS Comment on above: Interpretive Data: U se of this assay is not recommended for patients undergoing treatment with eltrombopag due to the potential for falsely elevated results. Calcium [Mass/Vol] 9.8 mg/dL Normal 8.7 - 10. 4 mg/dL ADM SS Chloride [Moles/Vol] 102 mmol/L Normal 98 - 11 0 mEq/L ADM SS CO2 [Moles/Vol] 27 mmol/L Normal 22 - 32 mEq/L ADM SS Creatinine [Mass/Vol] 0.56 mg/dL Normal 0.50 - 1.20 mg/dL ADM SS Comment on above: Interpretive Data: T esting performed on Firetide analyzer using enzymatic creatinine methodology. Electrolyte Balance 13.0 mEq/L Normal 4.0 - 15 .0 mEq/L ADM SS Eosinophils (Bld) [#/Vol] 0.1 103/mcL Normal 0.0 - 0.7 10^3/mcL Workflow SS Eosinophils/100 WBC (Bld) 1.2 % Normal 0.0 - 6.0 % Workflow SS Erythrocyte distribution width (RBC) [Ratio] 14.1 % Normal 11.5 - 15.5 % Workflow SS Estimated Glomerular Filtration Rate 97 ml/min/1.73sqm Invalid Interpretation Code ADM SS Comment on above: Interpretive Data: Stages of Chronic Kidney Disease (CKD) Stage Description eGFR(ml/min/1.73 sq.m.) CKD 1 Normal kidney function or >=90 normal kindney function with possible kidney damage (ex. Proteinuria) CKD 2 Kidney damage with mild loss 60-89 of kidney function CKD 3a Mild to moderate loss of kidney 45-59 function CKD 3b Moderate to severe loss of 30-44 of kindey function CKD 4 Severe loss of kidney function 15-29 CKD 5 Kidney failure <15 Note: (go live 2024) the eGFR calculation was updated to the 2020 CKD-EPI creatinine equation without a race factor to calculate the eGFR results. Globulin 3.6 G/dL Normal 2.5 - 4.2 G/dL ADM SS Glucose [Mass/Vol] 147 mg/dL High 82 - 115 mg/dL ADM SS Hematocrit (Bld) [Volume fraction] 44.2 % Normal 34.0 - 46.0 % AH Workflow SS Hemoglobin (Bld) [Mass/Vol] 15.1 G/dL Normal 12.0 - 16.0 G/dL AH Workflow SS Lymphocytes (Bld) [#/Vol] 1.7 103/mcL Normal 0.9 - 4.3 10^3/mcL AH Workflow SS Lymphocytes/100 WBC (Bld) 17.0 % Low 20.0 - 40.0 % AH Workflow SS MCH (RBC) [Entitic mass] 31.1 pg Normal 27.0 - 33.0 pg AH Workflow SS MCHC 34.1 G/dL Normal 32.0 - 36.0 G/dL AH Workflow SS MCV (RBC) [Entitic vol] 91.2 fL Normal 80.0 - 99.0 fL AH Workflow SS Monocyte distribution width Auto (Bld) [Entitic vol] 18.87 1 Normal 0.00 - 20.00 Workflow SS Comment on above: Result Comment: For ED adult patients suspected of sepsis, MDW<=20.0 does not rule out sepsis or risk of sepsis Monocytes (Bld) [#/Vol] 0.8 103/mcL Normal 0.1 - 1.4 10^3/mcL AH Workflow SS Monocytes/100 WBC (Bld) 7.8 % Normal 2.0 - 13.0 % AH Workflow SS Natriuretic peptide.B prohormone N-Terminal IA [Mass/Vol] 116 pg/mL Normal 0 - 900 pg/mL ADM SS Neutrophils (Bld) [#/Vol] 7.5 103/mcL Normal 2.3 - 8.1 10^3/mcL Workflow SS Neutrophils/100 WBC (Bld) 73.5 % Normal 50.0 - 75.0 % Workflow SS Platelet mean volume (Bld) [Entitic vol] 9.7 fL Normal 6.6 - 10.5 fL Workflow SS Platelets (Bld) [#/Vol] 239 103/mcL Normal 150 - 450 10^3/mcL AH Workflow SS Potassium [Moles/Vol] 3.7 mmol/L Normal 3.5 - 5.0 mEq/L ADM SS Protein [Mass/Vol] 7.8 G/dL Normal 5.7 - 8.2 G/dL ADM SS RBC (Bld) [#/Vol] 4.85 106/mcL Normal 4.10 - 5.3 0 10^6/mcL Workflow SS Sodium [Moles/Vol] 142 mmol/L Normal 136 - 145 mEq/L ADM SS Troponin I.cardiac DL <= 0.01 ng/mL [Mass/Vol] 3 ng/L Normal 0 - 34 ng/L ADM SS Comment on above: Interpretive Data: High Sensitive Troponin I Reference Ranges: Female: 0-34 ng/L Male: 0-54 ng/L Testing performed on dotSyntax analyzer using direct chemiluminescent technology. Urea nitrogen [Mass/Vol] 14.0 mg/dL Normal 8.0 - 22.0 mg/dL ADM SS Urea nitrogen/Creatinine [Mass ratio] 25.0 ratio High 10.0 - 22.0 ratio ADM SS WBC (Bld) [#/Vol] 10.2 103/mcL Normal 4.5 - 10.8 10^3/mcL Workflow SS PBNPon 02-01-2025 Natriuretic peptide B (Bld) [Mass/Vol] 116 pg/mL Normal 0-900 [facility] Comment on above: Performed By: #### G FR, ANEU, CMP, CBC, PBNP, ROXIE GALDAMEZ, DAVIDA #### [address] 02-01-2025 High Sensitivity Troponin I 3 ng/L Normal 0-34 [facility] Comment on above: Result Comment: High Sensitive Troponin I Reference Ranges: Female: 0-34 ng/L Male: 0-54 ng/L Testing performed on [employer] IM analyzer using direct chemiluminescent technology. Performed By: #### T [facility] #### [address] [address] High Sensitivity Troponin I 3 ng/L Normal 0-34 [facility] Comment on above: Result Comment: High Sensitive Troponin I Reference Ranges: Female: 0-34 ng/L Male: 0-54 ng/L Testing performed on [employer] IM analyzer using direct chemiluminescent technology. Performed By: #### G FR, ANEU, CMP, CBC, PBNP, ADIFF, MDW, TROPHS #### [address] [address] XR CHEST 1 VIEWon 02-01-2025 XR CHEST 1 VIEW ORIGINAL EXAMINATION: ONE XRAY VIEW OF THE CHEST 02/01/2025 4:52 pm COMPARISON: None. HISTORY: ORDERING SYSTEM PROVIDED HISTORY: Reason for Exam: chest pain FINDINGS: Cardiomediastinal silhouette is normal in size. Costophrenic angles are sharp. No radiographic pneumothorax. No focal consolidation. IMPRESSION: No focal consolidation. Interpreted by: Da Vega Preliminary Report By: Da Vega Electronically signed By Da Vega Dictated Date: 02/01/2025 5:07:49 PM Prelim Date: 02/01/2025 5:08:43 PM Sign Date: 02/01/2025 5:08:43 PM Ordering Provider: ZAC Eng [facility] MAMMOGRAM SCREENING BILAT ERAL W/TOMOon 05-13-2024 [place] MAMMOGRAM SCREENING BILATERAL W/MICHAEL ORIGINAL FROM: [address] [address] PROCEDURE FOR: OZZY ALCOCER [address] [place] [address] Home: PID#: [id number] Exam#: [id number] : 1950 Age: 73 TO: BRADLY SERRANO [address] [address] Fax: NO FAX EXAMINATION: SCREENING DIGITAL BILATERAL MAMMOGRAM WITH TOMOSYNTHESIS, 05/13/2024 8:41 am TECHNIQUE: Screening mammography of the bilateral breasts was performed with tomosynthesis. 2D standard and 3D tomosynthesis combination imaging performed through both breasts in the MLO and CC projection. Computer aided detection was utilized in the interpretation of this exam. COMPARISON: 05/13/2023 HISTORY: Breast cancer screening. FINDINGS: BREAST DENSITY: There are scattered areas of fibroglandular density. There are bilateral benign breast calcifications. There are no significant masses or calcifications. IMPRESSION: No mammographic evidence of malignancy. Continued screening with annual mammograms is recommended. Kimberly [facility] risk calculations, generated with the history provided, report this patient's 10 year risk and lifetime risk for developing breast cancer at 2.6% and 3.8%, respectively. Based on this assessment tool, if the patient's calculated lifetime risk is below 20%, then the patient is considered at average risk for developing breast cancer. If the patient's calculated lifetime risk is at or above 20%, then the patient is considered high risk for developing breast cancer and may be a candidate for supplemental breast MRI screening in addition to annual mammographic screening per the [employer]. BIRADS: BI-RADS: 2: Benign RECALL: 1 year screening RECALL TYPE: mammo LETTER SENT: Normal BI-RADS 1 and 2 Interpreted by: Keanu Fernandez MD Preliminary Report By: Keanu Fernandez MD Electronically signed By Keanu Fernandez MD Dictated Date: 05/13/2024 1:06:13 PM Prelim Date: 05/13/2024 1:12:33 PM Sign Date: 05/13/2024 1:12:33 PM Ordering Provider: BRADLY SERRANO Contract Implementation Analyst: [employer] RT(R)(M)(CT) PROJECT ADMINISTRATIVE ASSISTANT letter sent: Normal BI-RADS 1 and 2 Mammogram BI-RADS: 2 Benign Normal [facility] LABORATORYOrdered By: Nova King on 04-20-2024 Blood Glucose Frequency Daily (04/20/24 2:06 PM) [facility] .GFRon 03-11-2024 GFR 117 ml/min/1.73sqm Normal [facility] ([place]) Comment on above: Result Comment: GFR Population mean for , Non- Americans Ages 20-29 = 116 mL/min/1.73 sq.m. Ages 30-39 = 107 mL/min/1.73 sq.m. Ages 40-49 = 99 mL/min/1.73 sq.m. Ages 50-59 = 93 mL/min/1.73 sq.m. Ages 60-69 = 85 mL/min/1.73 sq.m. Ages 70+ = 75 mL/min/1.73 sq.m. Chronic Kidney Disease: Less than 60 mL/min/1.73 square meters End Stage Renal Disease: Less than 15 mL/min/1.73 square meters Performed By: #### G FR, CMP, LIPID #### Denny [address] [address] GFR Non- 97 ml/min/1.73sqm Normal [facility] ([place]) Comment on above: Result Comment: GFR Population mean for , Non- Americans Ages 20-29 = 116 mL/min/1.73 sq.m. Ages 30-39 = 107 mL/min/1.73 sq.m. Ages 40-49 = 99 mL/min/1.73 sq.m. Ages 50-59 = 93 mL/min/1.73 sq.m. Ages 60-69 = 85 mL/min/1.73 sq.m. Ages 70+ = 75 mL/min/1.73 sq.m. Chronic Kidney Disease: Less than 60 mL/min/1.73 square meters End Stage Renal Disease: Less than 15 mL/min/1.73 square meters Performed By: #### G FR, CMP, LIPID #### Denny [address] [address] CMPon 03-11-2024 Albumin Level 3.8 G/dL Normal 3.4-4.8 [facility] ([place]) Comment on above: Performed By: #### G FR, CMP, LIPID #### Denny [address] [address] Albumin/Globulin [Mass ratio] 1.0 {ratio} Low 1.1-2.5 [facility] ([place]) Comment on above: Performed By: #### G FR, CMP, LIPID #### [address] [address] ALP [Catalytic activity/Vol] 96 U/L Normal 40-135 [facility] ([place]) Comment on above: Performed By: #### G FR, CMP, LIPID #### [address] [address] ALT [Catalytic activity/Vol] 28 U/L Normal 14-59 [facility] ([place]) Comment on above: Performed By: #### G FR, CMP, LIPID #### [address] [address] AST [Catalytic activity/Vol] 17 U/L Normal 10-40 [facility] ([place]) Comment on above: Performed By: #### G FR, CMP, LIPID #### [address] [address] Bili Total 0.9 mg/dL Normal 0.2-1.0 [facility] ([place]) Comment on above: Result Comment: Use of this assay is not recommended for patients undergoing treatment with eltrombopag due to the potential for falsely elevated results. Performed By: #### G FR, CMP, LIPID #### [address] [address] BUN/Creatinine Ratio 16 ratio Normal 7-27 [facility] ([place]) Comment on above: Performed By: #### G FR, CMP, LIPID #### [address] [address] Calcium [Mass/Vol] 9.7 mg/dL Normal 8.4-10.2 [facility] ([place]) Comment on above: Performed By: #### G FR, CMP, LIPID #### [address] [address] Chloride [Moles/Vol] 102 mmol/L Normal 98-107 [facility] ([place]) Comment on above: Performed By: #### G FR, CMP, LIPID #### [address] [address] CO2 [Moles/Vol] 28 mmol/L Normal 23-31 [facility] ([place]) Comment on above: Performed By: #### G FR, CMP, LIPID #### [address] [address] Creatinine [Mass/Vol] 0.61 mg/dL Normal 0.55-1.02 [facility] ([place]) Comment on above: Performed By: #### G FR, CMP, LIPID #### [address] [address] Electrolyte Balance 9.0 mEq/L Normal 4.0-15.0 [facility] ([place]) Comment on above: Performed By: #### G FR, CMP, LIPID #### [address] [address] Globulin 4.0 G/dL Normal [facility] ([place]) Comment on above: Performed By: #### G FR, CMP, LIPID #### [address] [address] Glucose [Mass/Vol] 218 mg/dL High 83-110 [facility] ([place]) Comment on above: Performed By: #### G FR, CMP, LIPID #### [address] [address] Potassium [Moles/Vol] 3.9 mmol/L Normal 3.5-5.1 [facility] ([place]) Comment on above: Performed By: #### G FR, CMP, LIPID #### [address] [address] Sodium [Moles/Vol] 139 mmol/L Normal 136-145 [facility] ([place]) Comment on above: Performed By: #### G FR, CMP, LIPID #### [address] [address] Total Protein 7.8 G/dL Normal 6.4-8.2 [facility] ([place]) Comment on above: Performed By: #### G FR, CMP, LIPID #### [address] [address] Urea nitrogen [Mass/Vol] 10 mg/dL Normal 7-18 Formerly [facility] ([place]) Comment on above: Performed By: #### G FR, CMP, LIPID #### [place] [address] LABORATORYOrdered By: María Muñoz on 03-11-2024 Albumin DL <= 20 mg/L (U) [Mass/Vol] 722 mcg/dL Invalid Interpretation Code AO ADM SS Albumin/Creatinine DL <= 20 mg/L (U) [Mass ratio] 17 mcg/mg Normal 0 - 30 mcg/mg AO ADM SS Creatinine (U) [Mass/Vol] 43.3 mg/dL Normal 28.0 - 117.0 mg/dL AO ADM SS Cholesterol [Mass/Vol] 153 mg/dL Normal 0 - 200 mg/dL AO ADM SS Comment on above: Interpretive Data: C holesterol Reference Interval: Less than 200 Desirable 200-239 Borderline high risk 240 and above High risk Cholesterol in HDL [Mass/Vol] 46 mg/dL Normal 40 - 60 mg/dL AO ADM SS Cholesterol in LDL [Mass/Vol] 65 mg/dL Normal 0 - 130 mg/dL AO ADM SS Triglyceride [Mass/Vol] 208 mg/dL High 0 - 150 mg/dL AO ADM SS Comment on above: Interpretive Data: T riglyceride Reference Interval: Less than 150 Normal 150-199 Borderline high risk 200-499 High risk 500 or higher Very high risk LABORATORYOrdered By: SYSTEM SYSTEM on 03-11-2024 Albumin BCP dye [Mass/Vol] 3.8 G/dL Normal 3.4 - 4.8 G/dL AO ADM SS Albumin/Globulin [Mass ratio] 1.0 {ratio} Low 1.1 - 2.5 ratio AO ADM SS ALP [Catalytic activity/Vol] 96 U/L Normal 40 - 135 U/L AO ADM SS ALT With P-5'-P [Catalytic activity/Vol] 28 U/L Normal 14 - 59 U/L AO ADM SS AST With P-5'-P [Catalytic activity/Vol] 17 U/L Normal 10 - 40 U/L AO ADM SS Bilirubin [Mass/Vol] 0.9 mg/dL Normal 0.2 - 1 .0 mg/dL AO ADM SS Comment on above: Interpretive Data: U se of this assay is not recommended for patients undergoing treatment with eltrombopag due to the potential for falsely elevated results. Calcium [Mass/Vol] 9.7 mg/dL Normal 8.4 - 10. 2 mg/dL AO ADM SS Chloride [Moles/Vol] 102 mmol/L Normal 98 - 10 7 mmol/L AO ADM SS CO2 [Moles/Vol] 28 mmol/L Normal 23 - 31 mmol/L AO ADM SS Creatinine [Mass/Vol] 0.61 mg/dL Normal 0.55 - 1.02 mg/dL AO ADM SS Electrolyte Balance 9.0 mEq/L Normal 4.0 - 15 .0 mEq/L AO ADM SS GFR/1.73 sq M.predicted among blacks MDRD (S/P/Bld) [Vol rate/Area] 117 ml/min/1.73sqm Invalid Interpretation Code AO Chemistry S Comment on above: Interpretive Data: GFR Population mean for , Non- Americans Ages 20-29 = 116 mL/min/1.73 sq.m. Ages 30-39 = 107 mL/min/1.73 sq.m. Ages 40-49 = 99 mL/min/1.73 sq.m. Ages 50-59 = 93 mL/min/1.73 sq.m. Ages 60-69 = 85 mL/min/1.73 sq.m. Ages 70+ = 75 mL/min/1.73 sq.m. Chronic Kidney Disease: Less than 60 mL/min/1.73 square meters End Stage Renal Disease: Less than 15 mL/min/1.73 square meters GFR/1.73 sq M.predicted among non-blacks MDRD (S/P/Bld) [Vol rate/Area] 97 ml/min/1.73sqm Invalid Interpretation Code AO Chemistry S Comment on above: Interpretive Data: GFR Population mean for , Non- Americans Ages 20-29 = 116 mL/min/1.73 sq.m. Ages 30-39 = 107 mL/min/1.73 sq.m. Ages 40-49 = 99 mL/min/1.73 sq.m. Ages 50-59 = 93 mL/min/1.73 sq.m. Ages 60-69 = 85 mL/min/1.73 sq.m. Ages 70+ = 75 mL/min/1.73 sq.m. Chronic Kidney Disease: Less than 60 mL/min/1.73 square meters End Stage Renal Disease: Less than 15 mL/min/1.73 square meters Globulin 4.0 G/dL Invalid Interpretation Code AO ADM SS Glucose [Mass/Vol] 218 mg/dL High 83 - 110 mg/dL AO ADM SS Potassium [Moles/Vol] 3.9 mmol/L Normal 3.5 - 5.1 mmol/L AO ADM SS Protein [Mass/Vol] 7.8 G/dL Normal 6.4 - 8.2 G/dL AO ADM SS Sodium [Moles/Vol] 139 mmol/L Normal 136 - 145 mmol/L AO ADM SS Urea nitrogen [Mass/Vol] 10 mg/dL Normal 7 - 18 mg/dL AO ADM SS Urea nitrogen/Creatinine [Mass ratio] 16 ratio Normal 7 - 27 ratio AO ADM SS LIPIDon 03-11-2024 Cholesterol [Mass/Vol] 153 mg/dL Normal 0-200 [facility] ([place]) Comment on above: Result Comment: Chol esterol Reference Interval: Less than 200 Desirable 200-239 Borderline high risk 240 and above High risk Performed By: #### G FR, CMP, LIPID #### [address] [address] Cholesterol in HDL [Mass/Vol] 46 mg/dL Normal 40-60 [facility] ([place]) Comment on above: Performed By: #### G FR, CMP, LIPID #### [address] [address] Cholesterol in LDL [Mass/Vol] 65 mg/dL Normal 0-130 [facility] ([place]) Comment on above: Performed By: #### Ed FR, CMP, LIPID #### [address] [address] Triglyceride [Mass/Vol] 208 mg/dL High 0-150 [facility] ([place]) Comment on above: Result Comment: Trig lyceride Reference Interval: Less than 150 Normal 150-199 Borderline high risk 200-499 High risk 500 or higher Very high risk Performed By: #### G FR, CMP, LIPID #### [address] [address] MALBRon 03-11-2024 U Creatinine 43.3 mg/dL Normal 28.0-117.0 [facility] ([place]) Comment on above: Performed By: #### M ALBR #### [place] [id number] [place], [place] [address] U Microalb 722 mcg/dL Normal [facility] ([place]) Comment on above: Performed By: #### M ALBR #### [place] [address] [place], [place] [address] U Ratio Alb/Cre 17 mcg/mg Normal 0-30 [facility] ([place]) Comment on above: Performed By: #### M ALBR #### [place] [id number] [place], [place] [address] BD BONE DENSITY DEXA AXIAL S KELETONon 05-13-2023 BD BONE DENSITY DEXA AXIAL SKELETON ORIGINAL EXAMINATION: BONE DENSITOMETRY 05/13/2023 2:36 pm TECHNIQUE: A bone density dual x-ray absorptiometry (DEXA) scan was performed of the lumbar spine and left hip. COMPARISON: 01/22/2021 HISTORY: Reason for Exam: post menopause FINDINGS: BMD (g/cm2) Lumbar Spine L1-L4: 1.017. T Score Lumbar Spine L1-L4: -0.3 BMD (g/cm2) Left Femoral Neck: 0.664. T Score Left Femoral Neck: -1.7 BMD (g/cm2) Left Hip: 0.721. T Score Left Hip: -1.8 BMD Change from previous Hip: -15.3%, significant BMD Change from previous Lumbar spine: -0.7% FRAX: 10 year fracture risk assessment Major osteoporotic fracture: 11% Hip fracture: 1.7% IMPRESSION: Osteopenia. I have personally reviewed the images of this examination and agree with the resident's findings and interpretation. Interpreted by: Valencia Graves MD Preliminary Report By: Manuel Stapleton Electronically signed By Valencia Graves MD Dictated Date: 05/13/2023 2:38:40 PM Prelim Date: 05/13/2023 5:50:28 PM Sign Date: 05/13/2023 5:50:28 PM Ordering Provider: BRADLY Eng [facility] ([place] MAMMOGRAM SCREENING BILAT ERAL W/TOMOon 05-13-2023 [place] MAMMOGRAM SCREENING BILATERAL W/MICHAEL ORIGINAL FROM: [place] [address] [place], [place] [address] PROCEDURE FOR: [place] [address] Home: PID#: [id number] Exam#: [id number] : 1950 Age: 72 TO: BRADLY SERRANO DO [address] [place] [id number] Fax: NO FAX EXAMINATION: SCREENING DIGITAL BILATERAL MAMMOGRAM WITH TOMOSYNTHESIS, 05/13/2023 2:00 pm TECHNIQUE: Screening mammography of the bilateral breasts was performed with tomosynthesis. 2D standard and 3D tomosynthesis combination imaging performed through both breasts in the MLO and CC projection. Computer aided detection was utilized in the interpretation of this exam. COMPARISON: 03/27/2022, 12/23/2020 HISTORY: Breast cancer screening. FINDINGS: BREAST DENSITY: Scattered fibroglandular tissue There are benign appearing calcifications in both breasts. There are no significant masses or calcifications. IMPRESSION: No mammographic evidence of malignancy. Continued screening with annual mammograms is recommended. Tyrcharles Cuzick risk calculations, generated with the history provided, report this patient's 10 year risk and lifetime risk for developing breast cancer at 1.9% and 3.0%, respectively. Based on this assessment tool, if the patient's calculated lifetime risk is below 20%, then the patient is considered at average risk for developing breast cancer. If the patient's calculated lifetime risk is at or above 20%, then the patient is considered high risk for developing breast cancer and may be a candidate for supplemental breast MRI screening in addition to annual mammographic screening per the [employer]. BIRADS: MAMMOGRAM BI-RADS: 2: Benign finding RECALL: 1 year screening RECALL TYPE: mammo LETTER SENT: Normal BI-RADS 1 and 2 Interpreted by: Alfredito Ng MD Preliminary Report By: Alfredito Ng MD Electronically signed By Alfredito Ng MD Dictated Date: 05/13/2023 6:59:37 PM Prelim Date: 05/13/2023 7:03:48 PM Sign Date: 05/13/2023 7:03:48 PM Ordering Provider: BRADLY SERRANO Contract Implementation Analyst: RONY BAIRES RT (R) (M) (CT) letter sent: Normal BI-RADS 1 and 2 Mammogram BI-RADS: 2 Benign Normal [facility] ([place]) LABORATORYOrdered By: Cherry Sparrow on 03-21-2023 Albumin DL <= 20 mg/L (U) [Mass/Vol] 3577 mcg/dL Invalid Interpretation Code AO ADM SS Albumin/Creatinine DL <= 20 mg/L (U) [Mass ratio] 66 mcg/mg Invalid Interpretation Code 0 - 30 mcg/mg AO ADM SS Creatinine (U) [Mass/Vol] 53.8 mg/dL Invalid Interpretation Code 28.0 - 117.0 mg/dL AO ADM SS LABORATORYOrdered By: SYSTEM SYSTEM on 03-11-2023 Albumin BCP dye [Mass/Vol] 4.0 G/dL Invalid Interpretation Code 3.4 - 4.8 G/dL AO ADM SS Albumin/Globulin [Mass ratio] 1.1 {ratio} Invalid Interpretation Code 1.1 - 2.5 ratio AO ADM SS ALP [Catalytic activity/Vol] 77 U/L Invalid Interpretation Code 40 - 135 U/L AO ADM SS ALT With P-5'-P [Catalytic activity/Vol] 21 U/L Invalid Interpretation Code 14 - 59 U/L AO ADM SS AST With P-5'-P [Catalytic activity/Vol] 12 U/L Invalid Interpretation Code 10 - 40 U/L AO ADM SS Bilirubin [Mass/Vol] 0.6 mg/dL Invalid Interpretation Code 0.2 - 1.0 mg/dL AO ADM SS Comment on above: Interpretive Data: U se of this assay is not recommended for patients undergoing treatment with eltrombopag due to the potential for falsely elevated results. Calcium [Mass/Vol] 9.9 mg/dL Invalid Interpretation Code 8.4 - 10.2 mg/dL AO ADM SS Chloride [Moles/Vol] 99 mmol/L Invalid Interpretation Code 98 - 107 mmol/L AO ADM SS CO2 [Moles/Vol] 31 mmol/L Invalid Interpretation Code 23 - 31 mmol/L AO ADM SS Creatinine [Mass/Vol] 0.78 mg/dL Invalid Interpretation Code 0.55 - 1.02 mg/dL AO ADM SS Electrolyte Balance 10.0 mEq/L Invalid Interpretation Code 4.0 - 15.0 mEq/L AO ADM SS GFR/1.73 sq M.predicted among blacks MDRD (S/P/Bld) [Vol rate/Area] 88 ml/min/1.73sqm Invalid Interpretation Code AO Chemistry S Comment on above: Interpretive Data: GFR Population mean for , Non- Americans Ages 20-29 = 116 mL/min/1.73 sq.m. Ages 30-39 = 107 mL/min/1.73 sq.m. Ages 40-49 = 99 mL/min/1.73 sq.m. Ages 50-59 = 93 mL/min/1.73 sq.m. Ages 60-69 = 85 mL/min/1.73 sq.m. Ages 70+ = 75 mL/min/1.73 sq.m. Chronic Kidney Disease: Less than 60 mL/min/1.73 square meters End Stage Renal Disease: Less than 15 mL/min/1.73 square meters GFR/1.73 sq M.predicted among non-blacks MDRD (S/P/Bld) [Vol rate/Area] 73 ml/min/1.73sqm Invalid Interpretation Code AO Chemistry S Comment on above: Interpretive Data: GFR Population mean for , Non- Americans Ages 20-29 = 116 mL/min/1.73 sq.m. Ages 30-39 = 107 mL/min/1.73 sq.m. Ages 40-49 = 99 mL/min/1.73 sq.m. Ages 50-59 = 93 mL/min/1.73 sq.m. Ages 60-69 = 85 mL/min/1.73 sq.m. Ages 70+ = 75 mL/min/1.73 sq.m. Chronic Kidney Disease: Less than 60 mL/min/1.73 square meters End Stage Renal Disease: Less than 15 mL/min/1.73 square meters Globulin 3.8 G/dL Invalid Interpretation Code AO ADM SS Glucose [Mass/Vol] 146 mg/dL Invalid Interpretation Code 83 - 110 mg/dL AO ADM SS Potassium [Moles/Vol] 4.1 mmol/L Invalid Interpretation Code 3.5 - 5.1 mmol/L AO ADM SS Protein [Mass/Vol] 7.8 G/dL Invalid Interpretation Code 6.4 - 8.2 G/dL AO ADM SS Sodium [Moles/Vol] 140 mmol/L Invalid Interpretation Code 136 - 145 mmol/L AO ADM SS Urea nitrogen [Mass/Vol] 13 mg/dL Invalid Interpretation Code 7 - 18 mg/dL AO ADM SS Urea nitrogen/Creatinine [Mass ratio] 17 ratio Invalid Interpretation Code 7 - 27 ratio AO ADM SS LABORATORYOrdered By: Cherry Sparrow on 03-11-2023 Cholesterol [Mass/Vol] 144 mg/dL Invalid Interpretation Code 0 - 200 mg/dL AO ADM SS Comment on above: Interpretive Data: C holesterol Reference Interval: Less than 200 Desirable 200-239 Borderline high risk 240 and above High risk Cholesterol in HDL [Mass/Vol] 42 mg/dL Invalid Interpretation Code 40 - 60 mg/dL AO ADM SS Cholesterol in LDL [Mass/Vol] 67 mg/dL Invalid Interpretation Code 0 - 130 mg/dL AO ADM SS Triglyceride [Mass/Vol] 175 mg/dL Invalid Interpretation Code 0 - 150 mg/dL AO ADM SS Comment on above: Interpretive Data: T riglyceride Reference Interval: Less than 150 Normal 150-199 Borderline high risk 200-499 High risk 500 or higher Very high risk LABORATORYOrdered By: Louise Panda on 08-23-2021 Albumin BCP dye [Mass/Vol] 4.2 G/dL Invalid Interpretation Code 3.4 - 4.8 G/dL AO ADM SS Albumin/Globulin [Mass ratio] 1.1 {ratio} Invalid Interpretation Code 1.1 - 2.5 ratio AO ADM SS ALP [Catalytic activity/Vol] 72 U/L Invalid Interpretation Code 40 - 135 U/L AO ADM SS ALT With P-5'-P [Catalytic activity/Vol] 40 U/L Invalid Interpretation Code 14 - 59 U/L AO ADM SS AST With P-5'-P [Catalytic activity/Vol] 35 U/L Invalid Interpretation Code 10 - 40 U/L AO ADM SS Bilirubin [Mass/Vol] 0.6 mg/dL Invalid Interpretation Code 0.2 - 1.0 mg/dL AO ADM SS Calcium [Mass/Vol] 9.7 mg/dL Invalid Interpretation Code 8.4 - 10.2 mg/dL AO ADM SS Chloride [Moles/Vol] 100 mmol/L Invalid Interpretation Code 98 - 107 mmol/L AO ADM SS Cholesterol [Mass/Vol] 161 mg/dL Invalid Interpretation Code 0 - 200 mg/dL AO ADM SS Cholesterol in HDL [Mass/Vol] 44 mg/dL Invalid Interpretation Code 40 - 60 mg/dL AO ADM SS Cholesterol in LDL [Mass/Vol] 68 mg/dL Invalid Interpretation Code 0 - 130 mg/dL AO ADM SS CO2 [Moles/Vol] 29 mmol/L Invalid Interpretation Code 23 - 31 mmol/L AO ADM SS Creatinine [Mass/Vol] 0.83 mg/dL Invalid Interpretation Code 0.55 - 1.02 mg/dL AO ADM SS Electrolyte Balance 8.0 mEq/L Invalid Interpretation Code 4.0 - 15.0 mEq/L AO ADM SS Globulin 3.7 G/dL Invalid Interpretation Code AO ADM SS Glucose [Mass/Vol] 257 mg/dL Invalid Interpretation Code 80 - 115 mg/dL AO ADM SS HbA1c (Bld) [Mass fraction] 9.2 % Invalid Interpretation Code 4.3 - 6.4 % AO ADM SS Potassium [Moles/Vol] 3.9 mmol/L Invalid Interpretation Code 3.5 - 5.1 mmol/L AO ADM SS Protein [Mass/Vol] 7.9 G/dL Invalid Interpretation Code 6.4 - 8.2 G/dL AO ADM SS Sodium [Moles/Vol] 137 mmol/L Invalid Interpretation Code 136 - 145 mmol/L AO ADM SS Triglyceride [Mass/Vol] 247 mg/dL Invalid Interpretation Code 0 - 150 mg/dL AO ADM SS Urea nitrogen [Mass/Vol] 20 mg/dL Invalid Interpretation Code 7 - 18 mg/dL AO ADM SS Urea nitrogen/Creatinine [Mass ratio] 24 ratio Invalid Interpretation Code 7 - 27 ratio AO ADM SS LABORATORYOrdered By: SYSTEM SYSTEM on 08-23-2021 GFR 83 ml/min/1.73sqm Invalid Interpretation Code AO Chemistry S GFR Non- 68 ml/min/1.73sqm Invalid Interpretation Code AO Chemistry S Vital Signs Date Time Vital Sign Value Performing Clinician Mikla cook 02-19-2025 13:010400 Body height 167.[address] Bradly Serrano DO Work Phone: [facility] 02-19-2025 13:01-0400 Body mass index (BMI) [Ratio] 24 kg/m2 Dr. Bradly Serrano DO Work Phone: [facility] 02-19-2025 13:010400 Body weight 67.[address] Bradly Serrano DO Work Phone: [facility] 02-19-2025 13:01-0400 Diastolic blood pressure 76 mm[Hg] Dr. Bradly Serrano DO Work Phone: [facility] 02-19-2025 13:01-0400 Heart rate 75 /min Dr. Bradly Serrano DO Work Phone: [facility] 02-19-2025 13:01-0400 Respiratory rate 16 /min Dr. Bradly Serrano DO Work Phone: [facility] 02-19-2025 13:01-0400 Systolic blood pressure 145 mm[Hg] Dr. Bradly Serrano DO Work Phone: [facility] Encounters Encounter Date Encounter Type Care Provider Facility Start: 03-19-2025 ambulatory Bradly Serrano Facility:[facility] Start: 02-19-2025 End: 02-19-[address] Abel Waldrop MD -[facility] Work Phone: Start: 02-19-2025 End: 02-19-[address] Bradly Serrano DO Work Phone: -[facility] Start: 02-01-2025 End: 02-02-2025 Emergency department patient visit DR JOSEPH MURGUIA MD [facility] Start: 12-28-2024 End: 12-28-[address] BRADLY SERRANO DO Facility:[facility] Start: 12-28-2024 End: 12-28-[address] BRADLY SERRANO DO [facility] Start: 11-09-2024 End: 11-09-[address] BRADLY SERRANO DO Facility:[facility] Start: 09-28-2024 End: 09-28-[address] BRADLY SERRANO DO Facility:[facility] Start: 08-06-2024 End: 08-06-[address] BRADLY SERRANO DO Facility[facility] Start: 08-06-2024 End: 08-06-[address] BRADLY SERRANO DO [facility] Start: 06-25-2024 End: 06-25-[address] BRADLY SERRANO DO Facility:[facility] Start: 06-25-2024 End: 06-25-[address] BRADLY SERRANO DO [facility] Start: 05-21-2024 End: 05-21-[address] BRADLY SERRANO DO [facility] Start: 05-21-2024 End: 05-21-[address] BRADLY SERRANO DO [facility] Start: 05-13-2024 End: 05-13-[address] BRADLY SERRANO DO Facility:[facility] Start: 05-13-2024 End: 05-13-[address] BRADLY SERRANO DO [facility] Start: 04-20-2024 End: 04-20-[address] BRADLY SERRANO DO Facility:[facility] Start: 04-20-2024 End: 04-20-[address] BRADLY SERRANO DO [facility] Start: 03-25-[address] BRADLY SERRANO DO Fa cility:[facility] Start: 03-11-2024 End: 03-15-[address] BRADLY SERRANO DO Facility:[facility] Start: 03-11-2024 End: 03-15-[address] BRADLY SERRANO DO [facility] Start: 12-17-[address] BRADLY SERRANO DO Fa cility[facility] Start: 05-13-2023 End: 05-13-[address] BRADLY SERRANO DO Facility:[facility] Start: 05-13-2023 End: 05-13-[address] BRADLY SERRANO DO [facility] Start: 03-21-2023 End: 03-25-[address] BRADLY SERRANO DO [facility] Start: 03-11-2023 End: 03-11-[address] BRADLY SERRANO DO [facility] Start: 03-27-2022 End: 03-27-[address] BRADLY SERRANO DO [facility] Start: 08-23-2021 End: 08-23-[address] BRADLY SERRANO DO [facility] Procedures Date Procedure Procedure Detail Performing Clinician Start: 07-22-[address] eRyes SERRANO DO Start: 07-22-[address] STEPHIE SERRANO DO Plan of Treatment Date Care Activity Detail Author Start: 02-19-2025 Evaluation of diagno [facility] study results [facility] Immunizations Immunization Date Immunization Notes Care Provider Fa cility 11-03-2020 SARS-CoV-2 (COVID-19 ) mRNA-[address] BRADLY SERRANO DO [facility] Comment on above: Result Comment: 2021: [id number] 10-06-2020 SARS-CoV-2 (COVID-19 ) mRNA-[address] BRADLY SERRANO DO [facility] Comment on above: Result Comment: 2021: [id number] 06-15-2020 pneumococcal polysaccharide vaccine, [address] BRADLY SERRANO DO [facility] Comment on above: Result Comment: [facility] 03-23-2020 influenza virus vacc ine, unspecified formulation DR BRADLY SERRANO DO [facility] 05-22-2019 influenza virus vacc ine, unspecified formulation DR BRADLY SERRANO DO [facility] Comment on above: Result Comment: [facility] 05-22-2019 pneumococcal conjuga te vaccine, [address] BRADLY SERRANO DO [facility] Comment on above: Result Comment: [facility] Payers Date Payer Category Payer Self-pay [id number] 2021 Medicare [id number] 2021 Private Health Insurance [id number] 2021 Unknown [id number] 2021 Unknown [id number] 2019 Medicare [id number] 1950 Unknown [id number] 2.16.8 [id number] 1950 Unknown [id number] 2.16.8 [id number] 1950 Unknown [id number] 2.16.8 40.1.933059.3.579.2. 1950 Unknown [id number] 2.16.8 40.1.362624.3.579.2. 1950 Unknown [id number] 2.16. 840.1.769273.3.579.2. 1950 Unknown [id number] 2.16. 840.1.978381.3.579.2. 1950 Unknown [id number] 2.16. 840.1.836368.3.579.2. 1950 Unknown [id number] 2.16.8 40.1.521075.3.579.2. 1950 Unknown [id number] 2.16.8 40.1.790483.3.579.2. 1950 Unknown [id number] 2.16.8 40.1.339686.3.579.2. 1950 Unknown [id number] 2.16.8 40.1.200086.3.579.2. 1950 Unknown [id number] 2.16.8 40.1.465722.3.579.2. 1950 Unknown [id number] 2.16.8 40.1.420276.3.579.2. 1950 Unknown [id number] 2.16.8 40.1.219816.3.579.2. 1950 Unknown [id number] 2.16. 840.1.948052.3.579.2. Unknown [id number] 2.16.8 40.1.515627.3.579.2.462 Unknown [id number] 2.16.8 40.1.099642.3.579.2.462 Social History Date Type Detail Facility Start: 10-08-2018 End: 02-12-2019 Never smoked tobacco (finding) [facility] Start: 1950 Sex Assigned At Female A [facility] Sexual Orientation [facility] Start: 01-14-2019 Sex Female (finding) [facility] Medical Equipment Procedure Code Equipment Code Equipment Origin al Text Equipment Identifier Dates Blood Glucose Te st Strips Start: 10-05-2020 See Instructions , Diabetes type 2 (E11.9) Test BS once daily, # 50 EA, 8 Refill(s), Pharmacy: [facility]/pharmacy #[id number], Controlled diabetes mellitus, 165.5, cm, 03/15/22 9:33:00 EDT, Height, 77.2, kg, 03/15/22 9:33:00 EDT, Dosing Weight Start: 03-19-2022 See Instructions , Diabetes type 2 (E11.9) Test BS once daily, # 50 EA, 8 Refill(s), Pharmacy: [facility]/pharmacy #[id number], Controlled diabetes mellitus, 165.5, cm, 03/15/22 9:33:00 EDT, Height, 77.2, kg, 03/15/22 9:33:00 EDT, Dosing Weight Start: 03-19-2022 See Instructions , Diabetes type 2 (E11.9) Test BS once daily, # 50 EA, 8 Refill(s), Pharmacy: [facility]/pharmacy #[id number], Controlled diabetes mellitus, 165.5, cm, 03/15/22 9:33:00 EDT, Height, 77.2, kg, 03/15/22 9:33:00 EDT, Dosing Weight Start: 03-19-2022 See Instructions , Diabetes type 2 (E11.9) Test BS once daily, # 50 EA, 8 Refill(s), Pharmacy: [facility]/pharmacy #[id number], Controlled diabetes mellitus, 165.5, cm, 03/15/22 9:33:00 EDT, Height, 77.2, kg, 03/15/22 9:33:00 EDT, Dosing Weight Start: 03-19-2022 See Instructions , Diabetes type 2 (E11.9) Test BS once daily, # 50 EA, 8 Refill(s), Pharmacy: [facility]/pharmacy #4605, Controlled diabetes mellitus, 165.5, cm, 03/15/22 9:33:00 EDT, Height, 77.2, kg, 03/15/22 9:33:00 EDT, Dosing Weight Start: 03-19-2022 See Instructions , Diabetes type 2 (E11.9) Test BS once daily, # 50 EA, 8 Refill(s), Pharmacy: [facility]/pharmacy #4605, Controlled diabetes mellitus, 165.5, cm, 03/15/22 9:33:00 EDT, Height, 77.2, kg, 03/15/22 9:33:00 EDT, Dosing Weight Start: 03-19-2022 See Instructions , Diabetes type 2 (E11.9) Test BS once daily, # 50 EA, 8 Refill(s), Pharmacy: [facility]/pharmacy #4605, Controlled diabetes mellitus, 165.5, cm, 03/15/22 9:33:00 EDT, Height, 77.2, kg, 03/15/22 9:33:00 EDT, Dosing Weight Start: 03-19-2022 See Instructions , Diabetes type 2 (E11.9) Test BS once daily, # 50 EA, 8 Refill(s), Pharmacy: [facility]/pharmacy #4605, Controlled diabetes mellitus, 165.5, cm, 03/15/22 9:33:00 EDT, Height, 77.2, kg, 03/15/22 9:33:00 EDT, Dosing Weight Start: 03-19-2022 See Instructions , Diabetes type 2 (E11.9) Test BS once daily, # 50 EA, 8 Refill(s), Pharmacy: [facility]/pharmacy #[id number], Controlled diabetes mellitus, 165.5, cm, 03/15/22 9:33:00 EDT, Height, 77.2, kg, 03/15/22 9:33:00 EDT, Dosing Weight Start: 03-19-2022 See Instructions , Diabetes type 2 (E11.9) Test BS once daily, # 50 EA, 8 Refill(s), Pharmacy: [facility]/pharmacy #[id number], Controlled diabetes mellitus, 165.5, cm, 03/15/22 9:33:00 EDT, Height, 77.2, kg, 03/15/22 9:33:00 EDT, Dosing Weight Start: 03-19-2022 See Instructions , Diabetes type 2 (E11.9) Test BS once daily, # 50 EA, 8 Refill(s), [id number] Controlled diabetes mellitus, 165.5, cm, 03/15/22 9:33:00 EDT, Height, 77.2, kg, 03/15/22 9:33:00 EDT, Dosing Weight Start: 03-19-2022 See Instructions , Diabetes type 2 (E11.9) Test BS once daily, # 50 EA, 8 Refill(s), [id number], Controlled diabetes mellitus, 165.5, cm, 03/15/22 9:33:00 EDT, Height, 77.2, kg, 03/15/22 9:33:00 EDT, Dosing Weight Start: 03-19-2022 Blood Sugar Diagnostic (Accu-Chek Talya Plus Test Strp) strip Start: 08-06-2018 Blood Sugar Diagnostic (Accu-Chek Talya Plus Test Strp) strip Start: 08-06-2018 End: 08-06-2018 Blood Sugar Diagnostic (Blood Glucose Test) strip Start: 04-22-2018 End: 08-06-2018 Blood Sugar Diagnostic (Healthpro Test Strips) strip Start: 11-17-2017 End: 08-06-2018 Clinical Notes 05-13-2023 to 02-02-2025 Note Date & Type Note Facility 02-02-2025 Hospital Discharge instructions Patient Education 02/02/2025 03:24:06 Chest Pain, Uncertain Cause Uncertain Causes of Chest Pain Chest pain can happen for a number of reasons. Sometimes the cause can't be determined. If your condition does not seem serious, and your pain does not appear to be coming from your heart, your healthcare provider may recommend watching it closely. Sometimes the signs of a serious problem take more time to appear. Many problems not related to your heart can cause chest pain. These include: Musculoskeletal. Costochondritis is an inflammation of the tissues around the ribs that can occur from trauma or overuse injuries, or a strain of the muscles of the chest wall Respiratory. Pneumonia, collapsed lung (pneumothorax), or inflammation of the lining of the chest and lungs (pleurisy) Gastrointestinal. Esophageal reflux, heartburn, ulcers, or gallbladder disease Anxiety and panic disorders Nerve compression and inflammation Rare miscellaneous problems such as aortic aneurysm (a swelling of the large artery coming out of the heart) or pulmonary embolism (a blood clot in the lungs) Home care After your visit, follow these recommendations: Rest today and avoid strenuous activity. Take any prescribed medicine as directed. Be aware of any recurrent chest pain and notice any changes Follow-up care Follow up with your healthcare provider if you do not start to feel better within 24 hours, or as advised. Call 911 Call 911 if any of these occur: A change in the type of pain: if it feels different, becomes more severe, lasts longer, or begins to spread into your shoulder, arm, neck, jaw or back Shortness of breath or increased pain with breathing Weakness, dizziness, or fainting Rapid heart beat Crushing sensation in your chest When to seek medical advice Call your healthcare provider right away if any of the following occur: Cough with dark colored sputum (phlegm) or blood Fever of 100.4 F (38 C) or higher, or as directed by your healthcare provider Swelling, pain or redness in one leg [id number] [employer]. [address] [place] [address]. All rights reserved. This information is not intended as a substitute for professional medical care. Always follow your healthcare professional's instructions. Follow Up Care 02/01/2025 15:54:58 With:BRADLY SERRANO DO Address: [place] [address]- [phone] When:2-4 days [facility] 02-02-2025 Emergency department Discharge summary Discharge Instructions Thank you for allowing [facility] to assist you with your healthcare needs. The following is important discharge information regarding your hospital visit. Diagnosis from Today's Visit Chest pain What to Do Next Instructions from Your Care Team No qualifying data available. Post Acute Orders No qualifying data available. You Need to Schedule the Following Appointments Follow Up with BRADLY SERRANO DO When:Within 2-4 days Where:[address] [place] [address]- [phone] Allergies NKA Medications Please ask your primary doctor or pharmacist before taking any other medication not listed, including over the counter drugs, herbal medications, vitamins and or supplements as they may interact with your home medications. What How Much When Why Instructions Last Dose Unchanged aspirin (aspirin 81 mg oral delayed release tablet) 1 tab(s) by mouth Once a day Unchanged calcium-vitamin D (calcium (as citrate)-vitamin D 250 mg-200 intl units oral tablet) 1 tab(s) by mouth Two (2) times a day Unchanged dapagliflozin (Farxiga 10 mg oral tablet) 1 tab(s) by mouth Once a day Unchanged DME (Blood Glucose Test Strips) See instructions Controlled diabetes mellitus Diabetes type 2 (E11.9) Test BS once daily Unchanged glipiZIDE (glipiZIDE 10 mg oral tablet, extended release) 1 tab(s) by mouth Once a day Take with food Replaces glimepiride Unchanged hydroCHLOROthiazide (hydroCHLOROthiazide 25 mg oral tablet) 1 tab(s) by mouth Once a day Benign hypertension Unchanged losartan (losartan 50 mg oral tablet) 1 tab(s) by mouth Once a day Unchanged metFORMIN (MetFORMIN (Eqv-Glucophage XR) 500 mg oral tablet, EXTENDED RELEASE) 1 tab(s) by mouth Two (2) times a day DISPENSE GENERIC METFORMIN ER NON-OSMOTIC Unchanged Misc Medication (ACCU-CHEK TALYA PLUS TEST STRP) See instructions Check BG 2 times daily #50 Refill 12 Diabetes type 2 Unchanged multivitamin (Biotin Forte) 1 tab(s) by mouth Once a day Unchanged multivitamin with minerals (Centrum) 1 tab by mouth Once a day Unchanged nitroGLYcerin (nitroglycerin 0.3 mg sublingual tablet) 1 tab(s) under the tongue Every 5 minutes as needed for as needed for chest pain not to exceed 3 doses/ 15 min--if pain persists, seek medical attention Unchanged pioglitazone (pioglitazone 45 mg oral tablet) 1 tab(s) by mouth Once a day Unchanged semaglutide (Rybelsus 14 mg oral tablet) 1 tab(s) by mouth Once a day take at least 30 minutes before first food, beverage, or other oral meds Unchanged simvastatin (simvastatin 40 mg oral tablet) 1 tab(s) by mouth Daily at bedtime e11.9 Please take this list to your next doctor s visit. Bring all medications you take, including over the counter medications, herbals and other supplements with you to your doctor s visit. Patients and families are reminded to discard old lists and to update any records with all medication providers or retail pharmacies. Education Materials Uncertain Causes of Chest Pain Chest pain can happen for a number of reasons. Sometimes the cause can't be determined. If your condition does not seem serious, and your pain does not appear to be coming from your heart, your healthcare provider may recommend watching it closely. Sometimes the signs of a serious problem take more time to appear. Many problems not related to your heart can cause chest pain. These include: Musculoskeletal. Costochondritis is an inflammation of the tissues around the ribs that can occur from trauma or overuse injuries, or a strain of the muscles of the chest wall Respiratory. Pneumonia, collapsed lung (pneumothorax), or inflammation of the lining of the chest and lungs (pleurisy) Gastrointestinal. Esophageal reflux, heartburn, ulcers, or gallbladder disease Anxiety and panic disorders Nerve compression and inflammation Rare miscellaneous problems such as aortic aneurysm (a swelling of the large artery coming out of the heart) or pulmonary embolism (a blood clot in the lungs) Home care After your visit, follow these recommendations: Rest today and avoid strenuous activity. Take any prescribed medicine as directed. Be aware of any recurrent chest pain and notice any changes Follow-up care Follow up with your healthcare provider if you do not start to feel better within 24 hours, or as advised. Call 911 Call 911 if any of these occur: A change in the type of pain: if it feels different, becomes more severe, lasts longer, or begins to spread into your shoulder, arm, neck, jaw or back Shortness of breath or increased pain with breathing Weakness, dizziness, or fainting Rapid heart beat Crushing sensation in your chest When to seek medical advice Call your healthcare provider right away if any of the following occur: Cough with dark colored sputum (phlegm) or blood Fever of 100.4 F (38 C) or higher, or as directed by your healthcare provider Swelling, pain or redness in one leg [id number] [employer]. [address] [place] [address], [place] [id number]. All rights reserved. This information is not intended as a substitute for professional medical care. Always follow your healthcare professional's instructions. Additional Information VACCINATE! IT SAVES LIVES! Members of the community who have not yet received the COVID-19 vaccine and would like to receive it can visit one of [facility] vaccine clinics. There are many vaccine clinic locations within the [facility]. For locations and available times, please visit [email or web address] It is important to note that some COVID mobile vaccine clinics are held outdoors and may be canceled in rainy or stormy conditions. To learn more about pediatric vaccinations (ages 5-11), we invite you to visit the [employer] webpage. [email or web address]://[email or web address] To learn more about the COVID-19 vaccine, we invite you to visit the CDC website for a list of frequently asked questions. https://www.cdc.gov/coronavirus/20 19-ncov/vaccines/faq.html [facility] Patient Portal Access Instructions: Stay connected with your healthcare team and access your personal medical information anytime with the [facility] Patient Portal. If you would like a full copy of your medical records please contact the [facility] Medical Records Department Saturday through Saturday between 8a.m. and 4:30p.m. Please follow the directions below to access the portal: 1.Access the email account you provided upon registration to the hospital.2.Look for an invitation email from [facility].3.Open the email and access the invitation link: Accept Invitation to [facility]4.Fill in the required york to create your account. Sign into www.[employer] with your username and password that you created in the above steps to stay up to date. You can then view a summary of results, a summary of your visits, and the ability to download your summaries to your computer or send the information securely to a physician. Remember that your healthcare information is confidential, so carefully consider who you will allow to register on the [facility] Patient Portal for access to your information. You can also access the [facility] Patient Portal on the [employer]. Simply click on Health Records under Health Data and then click on the [employer] logo. HOW TO SAFELY DISPOSE OF PRESCRIPTION MEDICATIONS Please use one of the following methods to safely dispose of your unused medications. 1.Use a drug disposal kit: the drug disposal pouch allows you to safely discard your old and unused drugs. Ask your nurse to give you one when you are discharged.2.Visit a local take-back location: Many local pharmacies and police departments have programs that collect old and unwanted prescription drugs. Call your local pharmacy or go to http://Banki.ru.[employer]/7G1Lo7k to find one close to you.3.Make use of household items: Use cat litter or old coffee grounds to dispose medications if other options are not available. Mix your drugs with these household products, seal them in an airtight container and throw it into the garbage. Call [facility]: [phone] to be sure your drugs can be disposed of in this way. Some medicines may require a different approach.4.Never flush your medications down the toilet. IF YOU HAVE BEEN PRESCRIBED AN OPIOIDS FOR PAIN If you have been prescribed an opioid (such as hydrocodone, oxycodone or morphine), it is critical to understand the possible side effects and risks of opioid pain medications. Even when taken as directed, opioids can have several side effects including: Tolerance, meaning you might need to take more of a medication for the same pain relief. Nausea, vomiting and/or constipation. Sleepiness, dizziness, dry mouth, confusion, depression or itching. Physical dependence, meaning you have withdrawal symptoms when a medication is stopped ? this can develop within a few days. KNOW YOUR RESPONSIBILITIES It is important to know exactly how much and how often to take the opioid pain medications you are prescribed. Never take opioids in higher amounts or more often than prescribed. Do not combine opioids with alcohol or other drugs that cause drowsiness, such as benzodiazepines, also known as benzos, including diazepam and alprazolam, muscle relaxants or sleep aids. Never sell or share prescription opioids. This is illegal. Store opioids in a secure place and out of reach of others (including children, family, friends and visitors). The last page(s) of this document has been signed and retained as a CHART COPY Signatures Patient Education Materials Chest Pain, Uncertain Cause Medication Leaflets My discharge plan and instructions have been reviewed and explained to me and I,CARLYN, OZZY A understand my current condition and have read and understand these discharge instructions. I have received a written copy of the plan/instructions. If I have questions, I am aware that I should contact my doctor. 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 HISTORY: ORDERING SYSTEM PROVIDED HISTORY: Reason for Exam: chest pain FINDINGS: Cardiomediastinal silhouette is normal in size. Costophrenic angles are sharp. No radiographic pneumothorax. No focal consolidation. IMPRESSION: No focal consolidation. Interpreted by: Da Vega Preliminary Report By: Da Vega Electronically signed By Da Vega Dictated Date: 02/01/2025 5:07:49 PM Prelim Date: 02/01/2025 5:08:43 PM Sign Date: 02/01/2025 5:08:43 PM Ordering Provider: [facility]07-14-2025 Note* Exam Date Time Procedure Performing Provider Status 02/01/25 4:40 PM EKG (ED) - CV JOSEPH MURGUIA MD; Auth (Verified) ECG Final Report SINUS RHYTHM ANTERIOR INFARCT, OLD Electronic Signature: JOSEPH MURGUIA MD 02/02/2025 03:02:52 [id number] Note ORIGINAL EXAMINATION: BONE DENSITOMETRY 05/13/2023 2:36 pm TECHNIQUE: A bone density dual x-ray absorptiometry (DEXA) scan was performed of the lumbar spine and left hip. COMPARISON: 01/22/2021 HISTORY: Reason for Exam: post menopause FINDINGS: BMD (g/cm2) Lumbar Spine L1-L4: 1.017. T Score Lumbar Spine L1-L4: -0.3 BMD (g/cm2) Left Femoral Neck: 0.664. T Score Left Femoral Neck: -1.7 BMD (g/cm2) Left Hip: 0.721. T Score Left Hip: -1.8 BMD Change from previous Hip: -15.3%, significant BMD Change from previous Lumbar spine: -0.7% FRAX: 10 year fracture risk assessment Major osteoporotic fracture: 11% Hip fracture: 1.7% IMPRESSION: Osteopenia. I have personally reviewed the images of this examination and agree with the resident's findings and interpretation. Interpreted by: Valencia Graves MD Preliminary Report By: Manuel Stapleton Electronically signed By Valencia Graves MD Dictated Date: 05/13/2023 2:38:40 PM Prelim Date: 05/13/2023 5:50:28 PM Sign Date: 05/13/2023 5:50:28 PM [facility] Appointment Date:08/30/2021 01:20:00 PM Scheduled Provider:BRADLY SERRANO DO Location:[facility] Appointment Type:[facility] Evaluation + Plan note Future Appointments Appointment Date:06/05/2022 10:00:00 AM Scheduled Provider: Location:[facility] Appointment Type:DB Diabetic Individual Visit Appointment Date:03/18/2023 09:20:00 AM Scheduled Provider:BRADLY SERRANO DO Location:[facility] Appointment Type:PC Wellness Medicare Future Scheduled Tests Laboratory* Lipid Profile 03/15/23 * Complete Metabolic Panel 03/15/23 [facility] Evaluation + Plan note Future Appointments Appointment Date:03/18/2023 09:35:00 AM Scheduled Provider:BRADLY SERRANO DO Location:[facility] Appointment Type:PC Wellness Medicare Appointment Date:06/11/2023 09:30:00 AM Scheduled Provider: Location:[facility] Appointment Type:DB Diabetic Individual Visit ([facility]) [facility] Evaluation + Plan note Future Appointments Appointment Date:06/11/2023 09:30:00 AM Scheduled Provider: Location:[facility] Appointment Type:DB Diabetic Individual Visit ([facility]) Appointment Date:03/09/2024 08:00:00 AM Scheduled Provider: Location:[facility] Appointment Type:PC Nurse Lab Appointment Date:03/19/2024 10:00:00 AM Scheduled Provider:BRADLY SERRANO DO Location:[facility] Appointment Type: Wellness Medicare Future Scheduled Tests Laboratory* Lipid Profile 03/18/24 * Complete Metabolic Panel 03/18/24 [facility] Evora + Plan note Future Appointments Appointment Date:06/17/2023 09:00:00 AM Scheduled Provider: Location:[facility] Appointment Type:DB Diabetic Individual Visit ([facility]) Appointment Date:03/09/2024 08:00:00 AM Scheduled Provider: Location:[facility] Appointment Type:PC Nurse Lab Appointment Date:03/20/2024 08:20:00 AM Scheduled Provider:BRADLY SERRANO DO Location:[facility] Appointment Type:PC Wellness Medicare Future Scheduled Tests Laboratory* Lipid Profile 03/18/24 * Complete Metabolic Panel 03/18/24 [facility] Evora + Plan note Future Appointments Appointment Date:03/20/2024 08:20:00 AM Scheduled Provider:BRADLY SERRANO DO Location:[facility] Appointment Type:[facility] Medicare Appointment Date:06/16/2024 09:00:00 AM Scheduled Provider: Location:[facility] Appointment Type:MEDS - Diabetic Individual Visit [facility] evora + Plan note Future Appointments Appointment Date:05/13/2024 09:00:00 AM Scheduled Provider: Location:[facility] Appointment Type:[place] Mammogram Screening Bilateral w/ Michael Appointment Date:05/21/2024 01:00:00 PM Scheduled Provider: Location:[facility] Appointment Type:NUT Diet Visit Individual Appointment Date:06/16/2024 09:00:00 AM Scheduled Provider: Location:[facility] Appointment Type:MEDS - Diabetic Individual Visit Appointment Date:06/25/2024 01:00:00 PM Scheduled Provider: Location:[facility] Appointment Type:NUT Diet Visit Individual Appointment Date:06/25/2024 02:00:00 PM Scheduled Provider: Location:[facility] Appointment Type:MEDS - Diabetic Individual Visit Appointment Date:03/22/2025 08:35:00 AM Scheduled Provider:BRADLY SERRANO DO Location:[facility] Appointment Type:PC Wellness Medicare with Labs Future Scheduled Tests Laboratory* Lipid Profile 03/20/25 * Complete Metabolic Panel 03/20/25 Radiology* MA Mammo Screening Bilateral w/ Michael 05/13/24 [facility] blabfeedation + Plan note Future Appointments Appointment Date:05/21/2024 01:00:00 PM Scheduled Provider: Location:[facility] Appointment Type:NUT Diet Visit Individual Appointment Date:06/16/2024 09:00:00 AM Scheduled Provider: Location:[facility] Appointment Type:MEDS - Diabetic Individual Visit Appointment Date:06/25/2024 01:00:00 PM Scheduled Provider: Location:[facility] Appointment Type:NUT Diet Visit Individual Appointment Date:06/25/2024 02:00:00 PM Scheduled Provider: Location:[facility] Appointment Type:MEDS - Diabetic Individual Visit Appointment Date:03/22/2025 08:35:00 AM Scheduled Provider:BRADLY SERRANO DO Location:[facility] Appointment Type:PC Wellness Medicare with Labs Future Scheduled Tests Laboratory* Lipid Profile 03/20/25 * Complete Metabolic Panel 03/20/25 [facility] Evaluation + Plan note Future Appointments Appointment Date:06/16/2024 09:00:00 AM Scheduled Provider: Location:[facility] Appointment Type:MEDS - Diabetic Individual Visit Appointment Date:06/25/2024 01:00:00 PM Scheduled Provider: Location:[facility] Appointment Type:NUT Diet Visit Individual Appointment Date:06/25/2024 02:00:00 PM Scheduled Provider: Location:[facility] Appointment Type:MEDS - Diabetic Individual Visit Appointment Date:03/22/2025 08:35:00 AM Scheduled Provider:BRADLY SERRANO DO Location:[facility] Appointment Type:PC Wellness Medicare with Labs Future Scheduled Tests Laboratory* Lipid Profile 03/20/25 * Complete Metabolic Panel 03/20/25 [facility] Evkyreeation + Plan note Future Appointments Appointment Date:08/06/2024 08:00:00 AM Scheduled Provider: Location:[facility] Appointment Type:NUT Diet Visit Individual Appointment Date:08/06/2024 09:00:00 AM Scheduled Provider: Location:[facility] Appointment Type:MEDS - Diabetic Individual Visit Appointment Date:03/22/2025 08:35:00 AM Scheduled Provider:BRADLY SERRANO DO Location:[facility] Appointment Type: Wellness Medicare with Labs Future Scheduled Tests Laboratory* Lipid Profile 03/20/25 * Complete Metabolic Panel 03/20/25 [facility] Evaluation + Plan note Future Appointments Appointment Date:09/28/2024 10:30:00 AM Scheduled Provider: Location:[facility] Appointment Type:MEDS - Diabetic Individual Visit Appointment Date:09/28/2024 11:00:00 AM Scheduled Provider: Location:[facility] Appointment Type:NUT Diet Visit Individual Appointment Date:03/22/2025 08:35:00 AM Scheduled Provider:BRADLY SERRANO DO Location:[facility] Appointment Type: Wellness Medicare with Labs Future Scheduled Tests Laboratory* Lipid Profile 03/20/25 * Complete Metabolic Panel 03/20/25 [facility] Evkyreeation + Plan note Future Appointments Appointment Date:03/22/2025 08:35:00 AM Scheduled Provider:BRADLY SERRANO DO Location:[facility] Appointment Type: Wellness Medicare with Labs Appointment Date:03/29/2025 01:00:00 PM Scheduled Provider: Location:[facility] Appointment Type:NUT Diet Visit Individual Appointment Date:03/29/2025 01:30:00 PM Scheduled Provider: Location:[facility] Appointment Type:MEDS - Diabetic Individual Visit Future Scheduled Tests Laboratory* Lipid Profile 03/20/25 * Complete Metabolic Panel 03/20/25 [facility] Evaluation + Plan note Future Appointments Appointment Date:02/08/2025 11:00:00 AM Scheduled Provider:GILMAR RAINEY Location:[facility] Appointment Type:PC OV ED Follow Up Appointment Date:03/29/2025 01:00:00 PM Scheduled Provider: Location:[facility] Appointment Type:NUT Diet Visit Individual Appointment Date:03/29/2025 01:30:00 PM Scheduled Provider: Location:[facility] Appointment Type:MEDS - Diabetic Individual Visit Appointment Date:04/01/2025 09:30:00 AM Scheduled Provider:BRADLY SERRANO DO Location:[facility] Appointment Type:PC Wellness Medicare with Labs Future Scheduled Tests Laboratory* Lipid Profile 03/20/25 * Complete Metabolic Panel 03/20/25 [facility] Evaluation noteNo assessment information available [facility] Work Phone: Hospital course Narrative No data available for this section [facility] Discharge instructions No data available for this section [facility] Progress note No data available for this section [facility] Reason for referral (narrative)No reason for referral information availableF[facility] Work Phone: [facility] note* Shona Hercules: PERFORM Event Display: Patient Summary Documents Authored Date: [id number] [facility] Summary Purpose Family History Relationship Condition Age at Onset Recorded Date/T marcos Not Specified Parkinson's disease Unknown unrelated friend Arthritis Unknown Diabetes mellitus Unknown Cardiac disease Unknown Hypertension Unknown High blood cholesterol Unknown Kidney disorder Unknown Malignant neoplasm of skin Unknown No Family History Records Found Advance Directives No Advanced Directives Records FoundNo Advanced Directives Records FoundNo Advanced Directives Records FoundNo Advanced Directives Records Found Chief Complaint and Reason for Visit Chief Complaint Admit Date STEVE CORONA) February 19, 2025 12: 59pm Additional Source Comments Care Team (unrecognized sect ion and content) Care Team Personnel Name: BRADLY SERRANO DO Position: P4 Physician - Primary Care Med Service: Active Provider Member Role: Primary Care Physician Address: Address: [address] [facility] [place] [address]- Care Team Related Persons Name: RUSS ALCOCER Address: Home [address] [place], [place] [id number] Patient Care team informatio n (unrecognized section and content) Team Status: Active Member Role/Relationship Status Dates No Primary Care Physician Family Provider Active Dr. Bradly Serrano DO Primary Care Provider Active Team Status: Inactive Member Role/Relationship Status Dates Dr. Abel Waldrop MD Attending Provider Active S tart: February 19, 2025 End: February 19, 2025 Dr. Bradly Serrano DO Primary Care Provider Active Start: February 19, 2025 End: February 19, 2025 Dr. Bradly Serrano DO Referring Provider Active Start: February 19, 2025 End: February 19, 2025 INFORMATION SOURCE (unrecogn ized section and content) DATE CREATED AUTHOR 03/27/2024 [facility] ([place]) DATE CREATED AUTHOR AUTHOR'S ORGANIZ ATION 01/01/2025 [facility] DATE CREATED AUTHOR AUTHOR'S ORGANIZ ATION 02/11/2025 [facility] DATE CREATED AUTHOR AUTHOR'S ORGANIZ ATION 03/07/2025 [facility] Goals (unrecognized section and content) Goals may be documented in a n alternate section FOR RECORDS PERTAINING TO PATIENTS WHO ARE OR HAVE BEEN ENROLLED IN A CHEMICAL DEPENDENCY/SUBSTANCEABUSE PROGRAM, SOME INFORMATION MAY BE OMITTED. This clinical summary was aggregated from multiple sources. Caution should be exercised in using it in the provision of clinical care. This summary normalizes information from multiple sources, and as a consequence, information in this document may materially change the coding, format and clinical context of patient data. In addition, data may be omitted in some cases. CLINICAL DECISIONS SHOULD BE BASED ON THE PRIMARY CLINICAL RECORDS. [employer] provides no warranty or guarantee of the accuracy or completeness of information in this document.
--- NOTE | 2025-03-22 13:59 | STRESSREP ---
Stress Test Report Exercise myocardial perfusion stress test. 74-year-old female with a history of chest pain. Stress protocol: Resting EKG demonstrates normal sinus rhythm with a rate of 82 bpm resting blood pressure is 126/74 mmHg. The patient exercised according to the regular Quintin protocol for a total duration of 3 minutes attaining a maximum heart rate of 137 bpm which was 92% of maximum predicted heart rate; the maximum workload was 4.6 metabolic equivalents. At rest there were no ST or T wave changes noted to suggest ischemia and at peak exercise upsloping ST changes only were noted which did not meet the criteria for ischemia. No clinical angina was noted the test was terminated due to the target heart rate being achieved/fatigue. The peak blood pressure was 156/70 mmHg. Rate-pressure product was 20,900. Myocardial perfusion protocol. 12.9 mCi of technetium 99m sestamibi was injected at rest. The patient exercised according to regular Quintin protocol for total duration of 3 minutes and at peak exercise 39.2 mCi of technetium 99m sestamibi was injected stress images were obtained stress and rest images were reconstructed in comparing the short axis vertical long and horizontal long axis. Gated images were also obtained. Perfusion SPECT analysis: Review of the stress images demonstrate normal uptake of tracer noted in all areas of the myocardium. The resting images similarly demonstrate normal uptake of tracer noted in all areas of the myocardium. No areas of reversibility are noted to suggest ischemia no previous infarct was noted. Gated SPECT analysis: The gated ejection fraction is 84%. Conclusion: Normal exercise myocardial perfusion stress test at a low workload.
== END | disposition home or self-care (01) ==
LOC: CVS 06:26
PROVIDERS: PCP Family Medicine; Referring Provider Internal Medicine Cardiovascular Disease; Visit Provider Internal Medicine Cardiovascular Disease
DX: R07.9 Chest pain, unspecified (principal); I25.10 Atherosclerotic heart disease of native coronary artery without angina pectoris
CPT/HCPCS: 78452; 93017; 93306; A9500; A4216